=== PATIENT | female | born 1940 | race Caucasian/White ===

== ENCOUNTER 2016-06-06 13:45 | Outpatient (CLI) | payer MEDICARE, OTHER | END 2016-06-06 13:46 | disposition home or self-care (01) | DX: M06.09 Rheumatoid arthritis without rheumatoid factor, multiple sites (principal); M18.11 Unilateral primary osteoarthritis of first carpometacarpal joint, right hand ==

== ENCOUNTER 2016-06-06 13:45 | Outpatient (CLI) | payer MEDICARE, OTHER | END 2016-06-06 13:46 | disposition home or self-care (01) | DX: E83.52 Hypercalcemia (principal) ==

== ENCOUNTER 2016-08-31 08:24 | Outpatient (CLI) | payer MEDICARE, OTHER | END 2016-08-31 08:25 | disposition home or self-care (01) | DX: M06.09 Rheumatoid arthritis without rheumatoid factor, multiple sites (principal); M15.9 Polyosteoarthritis, unspecified ==

== ENCOUNTER 2016-10-12 14:08 | Outpatient (CLI) | payer MEDICARE, OTHER | END 2016-10-12 14:09 | disposition home or self-care (01) | DX: R92.8 Other abnormal and inconclusive findings on diagnostic imaging of breast (principal) ==

== ENCOUNTER 2016-10-13 12:31 | Outpatient (CLI) | payer MEDICARE, OTHER | END 2016-10-13 12:32 | disposition home or self-care (01) | DX: M79.601 Pain in right arm (principal) ==

== ENCOUNTER 2016-11-20 10:37 | Outpatient (CLI) | payer MEDICARE, OTHER ==
[2016-11-20 19:20] LABS: BASOPHILS % (AUTO) 0.7 %; EOSINOPHILS # (AUTO) 0.2 10^3/uL (0.0-0.7); EOSINOPHILS % (AUTO) 3.5 %; HCT - HEMATOCRIT 36.5 % (37.0-47.0); LYMPHOCYTES # (AUTO) 1.4 10^3/uL (1.5-3.5); MEAN CORPUSCULAR HEMOGLOBIN 31.4 pg (27.0-31.0); MEAN CORPUSCULAR HGB CONC 32.9 g/dL (32.0-36.0); MEAN CORPUSCULAR VOLUME 95.5 fL (81.0-99.0); MEAN PLATELET VOLUME 8.8 fL (7.9-10.8); MONOCYTES # (AUTO) 0.6 10^3/uL (0.0-1.0); MONOCYTES % (AUTO) 11.8 %; NEUTROPHILS # (AUTO) 2.6 10^3/uL (1.5-6.6); NUCLEATED RED BLOOD CELLS AUTO 0.1 /100WBC; RED BLOOD COUNT 3.82 10^6/uL (4.20-5.40); RED CELL DISTRIBUTION WIDTH 13.5 % (12.0-15.0); UNCORRECTED WHITE BLOOD COUNT 4.8 x10^3/uL; WHITE BLOOD COUNT 4.8 x10^3/uL (4.8-10.8)
[2016-11-20 19:29] LABS: ALBUMIN/GLOBULIN RATIO 1.3 (1.0-2.2); BILIRUBIN,TOTAL 0.4 mg/dL (0.2-1.0); CREATININE 0.8 mg/dL (0.4-1.0); POTASSIUM 4.3 mmol/L (3.5-5.0)
== END 2016-11-20 10:38 | disposition home or self-care (01) ==
LOC: LAB.WCP 10:37
PROVIDERS: ATTEND Internal Medicine Rheumatology
DX: M06.09 Rheumatoid arthritis without rheumatoid factor, multiple sites (principal)
CPT/HCPCS: 36415; 80053; 85025; 85651

== ENCOUNTER 2016-11-29 17:00 | Outpatient (CLI) | payer MEDICARE, OTHER | END 2016-11-29 17:01 | disposition home or self-care (01) | LOC: LAB.R 17:00 | PROVIDERS: ATTEND Physician Assistant Medical | DX: J34.89 Other specified disorders of nose and nasal sinuses (principal) | CPT/HCPCS: 87640 ==

== ENCOUNTER 2016-12-13 16:30 | Outpatient (CLI) | payer MEDICARE, OTHER | END 2016-12-13 16:31 | LOC: LAB.R 16:30 | PROVIDERS: ATTEND Physician Assistant Medical | DX: N39.41 Urge incontinence (principal) | CPT/HCPCS: 87086 ==

== ENCOUNTER 2017-01-28 09:28 | Outpatient (CLI) | payer MEDICARE, OTHER ==
[2017-01-28 13:45] LABS: BILIRUBIN,TOTAL 0.3 mg/dL (0.2-1.0); BUN - BLOOD UREA NITROGEN 28 mg/dL (6-20); CALCIUM 10.2 mg/dL (8.5-10.3); CARBON DIOXIDE - CO2 27 mmol/L (21-32); CHLORIDE 101 mmol/L (101-111); CHOL/HDL RATIO 3.3 (<4.4); CHOLESTEROL 177 mg/dL; GFR - MDRD 54 (>89); GLUCOSE 115 mg/dL (70-100); HDL CHOLESTEROL 53 mg/dL; POTASSIUM 3.7 mmol/L (3.5-5.0); SODIUM 138 mmol/L (135-145); TOTAL PROTEIN 7.3 g/dL (6.7-8.2); TRIGLYCERIDES 80 mg/dL; VLDL CHOLESTEROL 16 mg/dL
== END 2017-01-28 09:29 | disposition home or self-care (01) ==
LOC: LAB.WCP 09:28
PROVIDERS: ATTEND Physician Assistant Medical
DX: E78.5 Hyperlipidemia, unspecified (principal)
CPT/HCPCS: 36415; 80053; 80061

== ENCOUNTER 2017-04-01 10:49 | Outpatient (CLI) | payer MEDICARE, OTHER ==
[2017-04-01 19:00] LABS: BASOPHILS % (AUTO) 0.8 %; EOSINOPHILS # (AUTO) 0.2 10^3/uL (0.0-0.7); EOSINOPHILS % (AUTO) 4.1 %; HGB - HEMOGLOBIN 11.7 g/dL (12.0-16.0); LYMPHOCYTES # (AUTO) 1.5 10^3/uL (1.5-3.5); LYMPHOCYTES % (AUTO) 26.4 %; MEAN CORPUSCULAR HEMOGLOBIN 30.7 pg (27.0-31.0); MEAN CORPUSCULAR HGB CONC 33.3 g/dL (32.0-36.0); MEAN CORPUSCULAR VOLUME 92.2 fL (81.0-99.0); MEAN PLATELET VOLUME 8.8 fL (7.9-10.8); MONOCYTES # (AUTO) 0.5 10^3/uL (0.0-1.0); MONOCYTES % (AUTO) 8.6 %; NEUTROPHILS # (AUTO) 3.3 10^3/uL (1.5-6.6); NEUTROPHILS % (AUTO) 60.1 %; RED CELL DISTRIBUTION WIDTH 14.6 % (12.0-15.0); UNCORRECTED WHITE BLOOD COUNT 5.5 x10^3/uL; WHITE BLOOD COUNT 5.5 x10^3/uL (4.8-10.8)
[2017-04-01 19:20] LABS: ALBUMIN/GLOBULIN RATIO 1.1 (1.0-2.2); BILIRUBIN,TOTAL 0.4 mg/dL (0.2-1.0); POTASSIUM 3.9 mmol/L (3.5-5.0); TOTAL PROTEIN 7.3 g/dL (6.7-8.2)
== END 2017-04-01 10:50 | disposition home or self-care (01) ==
LOC: LAB.WCP 10:49
PROVIDERS: ATTEND Internal Medicine Rheumatology
DX: M06.09 Rheumatoid arthritis without rheumatoid factor, multiple sites (principal)
CPT/HCPCS: 36415; 80053; 85025; 85651

== ENCOUNTER 2017-04-30 10:59 | Outpatient (CLI) | payer MEDICARE, OTHER ==
--- NOTE | 2017-05-01 17:11 | Mammography Report ---
DIGITAL SCREENING MAMMOGRAM: 04/30/2017 CLINICAL INDICATION: A 76-year-old with history of benign biopsy for screening. COMPARISON: 04/2016, 03/2014, 03/2013, 03/2012, 03/2011, 09/2010, 03/2010. TECHNIQUE: Routine CC and MLO projections were obtained of the breasts. The breasts again demonstrate scattered fibroglandular densities bilaterally. Biopsy markers in the left breast are stable. Coarse and punctate, typically benign calcifications are present. No suspic ious masses, clustered microcalcifications, or regions of architectural distortion are identified. IMPRESSION: BENIGN FINDINGS. RECOMMENDATION: ROUTINE ANNUAL SCREENING UNLESS OTHERWISE CLINICALLY INDICATED. BIRADS CATEGORY: 2, BENIGN FINDINGS. STANDARD QUALIFYING STATEMENTS 1. This examination was reviewed with the aid of Computed-Aided Detection (CAD). 2. A negative or benign imaging report should not delay biopsy if clinically suspicious findings are present. Consider surgical consultation if warranted. More than 5% of cancers are not identified b y imaging. 3. Dense breasts may obscure an underlying neoplasm. JOB #: [id number] EXT JOB #:[id number]
== END 2017-04-30 11:00 | disposition home or self-care (01) ==
LOC: DI 10:59
PROVIDERS: ATTEND Physician Assistant Medical
DX: Z12.31 Encounter for screening mammogram for malignant neoplasm of breast (principal)
CPT/HCPCS: 77067

== ENCOUNTER 2017-06-20 08:00 | Outpatient (CLI) | payer MEDICARE, OTHER ==
[2017-06-20 12:46] LABS: CHOL/HDL RATIO 2.3 (<4.4); CHOLESTEROL 177 mg/dL; HDL CHOLESTEROL 76 mg/dL; LDL CHOLESTEROL,CALCULATED 85 mg/dL; LDL/HDL RATIO 1.1 (<4.4); VLDL CHOLESTEROL 16 mg/dL
[2017-06-20 12:58] LABS: BASOPHILS % (AUTO) 0.7 %; EOSINOPHILS # (AUTO) 0.2 10^3/uL (0.0-0.7); EOSINOPHILS % (AUTO) 3.6 %; HGB - HEMOGLOBIN 12.3 g/dL (12.0-16.0); LYMPHOCYTES # (AUTO) 1.8 10^3/uL (1.5-3.5); LYMPHOCYTES % (AUTO) 32.5 %; MEAN CORPUSCULAR HEMOGLOBIN 30.5 pg (27.0-31.0); MEAN CORPUSCULAR HGB CONC 33.4 g/dL (32.0-36.0); MEAN CORPUSCULAR VOLUME 91.3 fL (81.0-99.0); MEAN PLATELET VOLUME 8.4 fL (7.9-10.8); MONOCYTES # (AUTO) 0.5 10^3/uL (0.0-1.0); MONOCYTES % (AUTO) 9.2 %; PLT - PLATELET COUNT 227 10^3/uL (130-450); RED BLOOD COUNT 4.02 10^6/uL (4.20-5.40); RED CELL DISTRIBUTION WIDTH 13.9 % (12.0-15.0); WHITE BLOOD COUNT 5.5 x10^3/uL (4.8-10.8)
[2017-06-20 13:02] LABS: ALBUMIN/GLOBULIN RATIO 1.2 (1.0-2.2); ALKALINE PHOSPHATASE 55 IU/L (42-121); ALT ALANINE AMINOTRANSFERASE 11 IU/L (10-60); AST ASPARTATE AMINOTRANSFERASE 20 IU/L (10-42); BILIRUBIN,TOTAL 0.2 mg/dL (0.2-1.0); BUN - BLOOD UREA NITROGEN 33 mg/dL (6-20); CALCIUM 10.5 mg/dL (8.5-10.3); CARBON DIOXIDE - CO2 27 mmol/L (21-32); CHLORIDE 105 mmol/L (101-111); CREATININE 0.9 mg/dL (0.4-1.0); GFR - MDRD 61 (>89); GLUCOSE 117 mg/dL (70-100); SODIUM 137 mmol/L (135-145); TOTAL PROTEIN 7.4 g/dL (6.7-8.2)
[2017-06-20 13:05] LABS: CRP - C-REACTIVE PROTEIN < 1.0 mg/dL (0-1.0)
== END 2017-06-20 08:01 ==
LOC: LAB.WCP 08:00
PROVIDERS: ATTEND Internal Medicine Rheumatology
DX: M06.09 Rheumatoid arthritis without rheumatoid factor, multiple sites (principal); M15.9 Polyosteoarthritis, unspecified; E78.5 Hyperlipidemia, unspecified
CPT/HCPCS: 36415; 80053; 80061; 85025; 85651; 86140

== ENCOUNTER 2017-09-16 08:37 | Outpatient (CLI) | payer MEDICARE, OTHER ==
[2017-09-16 12:46] LABS: BASOPHILS % (AUTO) 0.9 %; EOSINOPHILS # (AUTO) 0.2 10^3/uL (0.0-0.7); EOSINOPHILS % (AUTO) 4.5 %; HGB - HEMOGLOBIN 12.4 g/dL (12.0-16.0); LYMPHOCYTES # (AUTO) 1.5 10^3/uL (1.5-3.5); LYMPHOCYTES % (AUTO) 28.2 %; MEAN CORPUSCULAR HEMOGLOBIN 30.9 pg (27.0-31.0); MEAN CORPUSCULAR VOLUME 90.7 fL (81.0-99.0); MEAN PLATELET VOLUME 8.4 fL (7.9-10.8); MONOCYTES # (AUTO) 0.5 10^3/uL (0.0-1.0); MONOCYTES % (AUTO) 9.7 %; NEUTROPHILS % (AUTO) 56.7 %; PLT - PLATELET COUNT 230 10^3/uL (130-450); RED BLOOD COUNT 4.02 10^6/uL (4.20-5.40); RED CELL DISTRIBUTION WIDTH 13.8 % (12.0-15.0); WHITE BLOOD COUNT 5.3 x10^3/uL (4.8-10.8)
[2017-09-16 13:11] LABS: ALBUMIN 3.9 g/dL (3.2-5.5); ALBUMIN/GLOBULIN RATIO 1.1 (1.0-2.2); ALKALINE PHOSPHATASE 65 IU/L (42-121); ALT ALANINE AMINOTRANSFERASE 10 IU/L (10-60); AST ASPARTATE AMINOTRANSFERASE 21 IU/L (10-42); BILIRUBIN,TOTAL 0.5 mg/dL (0.2-1.0); BUN - BLOOD UREA NITROGEN 33 mg/dL (6-20); CALCIUM 10.2 mg/dL (8.5-10.3); CARBON DIOXIDE - CO2 26 mmol/L (21-32); CHLORIDE 105 mmol/L (101-111); CREATININE 0.8 mg/dL (0.4-1.0); CRP - C-REACTIVE PROTEIN < 1.0 mg/dL (0-1.0); GFR - MDRD 70 (>89); GLUCOSE 112 mg/dL (70-100); SODIUM 137 mmol/L (135-145); TOTAL PROTEIN 7.4 g/dL (6.7-8.2)
== END 2017-09-16 08:38 | disposition home or self-care (01) ==
LOC: LAB.WCP 08:37
PROVIDERS: ATTEND Internal Medicine Rheumatology
DX: M79.1 Myalgia (principal); M06.00 Rheumatoid arthritis without rheumatoid factor, unspecified site
CPT/HCPCS: 36415; 80053; 85025; 85651; 86140

== ENCOUNTER 2017-10-23 08:00 | Outpatient (CLI) | payer MEDICARE, OTHER ==
[2017-10-25 22:18] LABS: ALBUMIN 3.9 g/dL (3.8-4.8); ALPHA 1 GLOBULIN 0.3 g/dL (0.2-0.3); ALPHA 2 GLOBULIN 0.9 g/dL (0.5-0.9); BETA 1 GLOBULIN 0.5 g/dL (0.4-0.6); BETA 2 GLOBULIN 0.5 g/dL (0.2-0.5)
== END 2017-10-23 08:01 ==
LOC: LAB.WCP 08:00
PROVIDERS: ATTEND Internal Medicine Rheumatology
DX: M25.50 Pain in unspecified joint (principal)
CPT/HCPCS: 36415; 84155; 84165; 85651; 86140

== ENCOUNTER 2018-01-06 08:00 | Outpatient (CLI) | payer MEDICARE, OTHER ==
[2018-01-06 14:02] LABS: CHOL/HDL RATIO 2.6 (<4.4); CHOLESTEROL 190 mg/dL; HDL CHOLESTEROL 72 mg/dL; LDL CHOLESTEROL,CALCULATED 108 mg/dL; LDL/HDL RATIO 1.5 (<4.4); VLDL CHOLESTEROL 10 mg/dL
[2018-01-06 16:14] LABS: BASOPHILS # (AUTO) 0.1 10^3/uL (0.0-0.1); BASOPHILS % (AUTO) 1.4 %; EOSINOPHILS # (AUTO) 0.2 10^3/uL (0.0-0.7); HGB - HEMOGLOBIN 12.6 g/dL (12.0-16.0); LYMPHOCYTES # (AUTO) 1.5 10^3/uL (1.5-3.5); LYMPHOCYTES % (AUTO) 28.7 %; MEAN CORPUSCULAR HEMOGLOBIN 30.6 pg (27.0-31.0); MEAN CORPUSCULAR HGB CONC 33.6 g/dL (32.0-36.0); MEAN CORPUSCULAR VOLUME 91.2 fL (81.0-99.0); MEAN PLATELET VOLUME 8.7 fL (7.9-10.8); MONOCYTES # (AUTO) 0.5 10^3/uL (0.0-1.0); MONOCYTES % (AUTO) 9.2 %; NEUTROPHILS # (AUTO) 3.1 10^3/uL (1.5-6.6); NEUTROPHILS % (AUTO) 57.7 %; PLT - PLATELET COUNT 239 10^3/uL (130-450); RED CELL DISTRIBUTION WIDTH 14.1 % (12.0-15.0); WHITE BLOOD COUNT 5.3 x10^3/uL (4.8-10.8)
[2018-01-06 16:23] LABS: ALBUMIN 3.7 g/dL (3.2-5.5); BILIRUBIN,TOTAL 0.4 mg/dL (0.2-1.0); CALCIUM 9.9 mg/dL (8.5-10.3); CREATININE 0.8 mg/dL (0.4-1.0); TOTAL PROTEIN 7.3 g/dL (6.7-8.2)
== END 2018-01-06 08:01 | disposition home or self-care (01) ==
LOC: LAB.WCP 08:00
PROVIDERS: ATTEND Physician Assistant Medical
DX: E78.5 Hyperlipidemia, unspecified (principal); M06.00 Rheumatoid arthritis without rheumatoid factor, unspecified site
CPT/HCPCS: 36415; 80053; 80061; 83721; 85025; 85651

== ENCOUNTER 2018-04-17 08:00 | Outpatient (CLI) | payer MEDICARE, OTHER ==
[2018-04-17 14:05] LABS: ALBUMIN 4.1 g/dL (3.2-5.5); ALBUMIN/GLOBULIN RATIO 1.3 (1.0-2.2); BILIRUBIN,TOTAL 0.7 mg/dL (0.2-1.0); CALCIUM 9.9 mg/dL (8.5-10.3); CREATININE 0.8 mg/dL (0.4-1.0); TOTAL PROTEIN 7.3 g/dL (6.7-8.2)
== END 2018-04-17 08:01 ==
LOC: LAB.WCP 08:00
PROVIDERS: ATTEND Internal Medicine Rheumatology
DX: M25.50 Pain in unspecified joint (principal)
CPT/HCPCS: 36415; 80053; 85651; 86140

== ENCOUNTER 2018-06-02 09:38 | Outpatient (CLI) | payer MEDICARE, OTHER ==
--- NOTE | 2018-06-04 09:08 | Mammography Report ---
Reason: SCREENING MAMMO Procedure Date: 06/02/2018 Accession Number: [id number] / [id number] Procedure: JESSICA - Screening Mammo w/Khurram CPT Code: FULL RESULT: EXAM: Screening Mammo w/Khurram DATE: 06/02/2018 10:32 AM CLINICAL HISTORY: Screening encounter. History of benign left breast biopsy. No reported risk factors. TECHNIQUE: Bilateral CC, laterally exaggerated CC, MLO views were obtained. COMPARISON: 04/30/2017 through 03/17/2013. FINDINGS: The breasts demonstrate scattered fibroglandular densities bilaterally. Two biopsy markers are seen in the left breast. Typically benign coarse calcifications are noted. No suspicious masses, clustered microcalcifications, or regions of architectural distortion are identified. IMPRESSION: Benign findings RECOMMENDATION: Routine annual screening unless otherwise clinically indicated. BIRADS CATEGORY 2: Benign findings STANDARD QUALIFYING STATEMENTS: 1. This examination was not reviewed with the aid of Computer-Aided Detection (CAD). 2. A negative or benign imaging report should not preclude biopsy if clinically suspicious findings are present. 3. Dense breasts may obscure an underlying neoplasm. 4. This examination was reviewed with the aid of 3D breast imaging (tomosynthesis).
== END 2018-06-02 09:39 | disposition home or self-care (01) ==
LOC: DI 09:38
DX: Z12.31 Encounter for screening mammogram for malignant neoplasm of breast (principal)
CPT/HCPCS: 77063; 77067

== ENCOUNTER 2018-12-23 19:21 | Emergency (ER) | payer MEDICARE, OTHER ==
[2018-12-23] MEDS ORDERED: SODIUM CHLORIDE 0.9% 1,000 ML IV ONE (19:43)
--- NOTE | 2018-12-23 19:45 | ED Physician Documentation ---
History of Present Illness - Stated complaint Stated Complaint: FEVER/CONFUSION - Chief complaint Chief Complaint: Neuro - History obtained from History obtained from: Patient, Family - History of Present Illness Timing: Today (She is been achy for a few days with myalgias and a mild cough. She has a low appetite, denies specific urinary complaints. Today she had a fever of 101.4 and was mildly confused. Thinking it was 6 AM instead of 6 PM just prior to arrival.At most she has a mild headache. No neck stiffness. No sick contacts or recent travel although she is planning to go [facility] [place] [facility] Review of Systems Constitutional: reports: Fever, Chills Ears: denies: Drainage/discharge Nose: denies: Rhinorrhea / runny nose, Congestion Throat: denies: Sore throat Respiratory: reports: Cough. denies: Dyspnea GI: reports: Diarrhea (2 small yesterday, not today). 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 - Present Medications Home Medications: Ambulatory Orders Medication Instructions Recorded Confirmed Aspirin [Aspirin EC] 81 mg PO DAILY 11/16/12 12/23/18 Cholecalciferol (Vitamin D3) 2,000 unit PO DAILY 11/16/12 12/23/18 [Vitamin D] Cyclosporine [Restasis] 1 each EACHEYE DAILY 11/16/12 12/23/18 Magnesium Citrate [Citrate of 300 ml PO DAILY 11/16/12 12/23/18 Magnesia] Metoprolol Succinate [Toprol Xl] 25 mg PO BID 11/16/12 12/23/18 Multivitamin [Multivitamins] 1 each PO DAILY 11/16/12 12/23/18 Omeprazole [PriLOSEC] 20 mg PO DAILY 07/18/15 12/23/18 Ciprofloxacin HCl [Cipro] 500 mg PO BID #14 tablet 12/23/18 Diltiazem HCl [Diltiazem 24Hr ER] 120 mg PO DAILY 12/23/18 12/23/18 Losartan [Cozaar] 25 mg PO DAILY 12/23/18 12/23/18 Mirabegron [Myrbetriq] 50 mg PO DAILY 12/23/18 12/23/18 - Allergies Allergies/Adverse Reactions: Allergies Allergy/AdvReac Type Severity Reaction Status Date / Time Iodinated Contrast- Oral and AdvReac Intermediate Rash Verified 12/23/18 19:29 IV Dye [Iodinated Contrast Media - IV Dye] - Social History Does the pt smoke?: No Smoking Status: Never smoker Does the pt drink ETOH?: No Does the pt have substance abuse?: No - Immunizations Immunizations are current?: Yes PD ED PE NORMAL - Vitals Vital signs reviewed: Yes - General General: Alert and oriented X 3, No acute distress - HEENT HEENT: PERRL, EOMI - Neck Neck: Supple, no meningeal sign, No bony TTP - Cardiac Cardiac: RRR, No murmur - Respiratory Respiratory: No respiratory distress, Clear bilaterally - Abdomen Abdomen: Soft, Non tender - Back Back: No CVA TTP, No spinal TTP - Derm Derm: Normal color, Warm and dry, Other (modest macular rash on the trunk, no petechiae/purpura) - Extremities Extremities: No edema, No calf tenderness / cord - Neuro Neuro: Alert and oriented X 3 (But slightly poor short-term memory, although technically alert and oriented.), Normal speech Results - Vitals Vitals: Vital Signs - 24 hr 12/23/18 12/23/18 12/23/18 19:26 19:29 21:29 Temperature 37.1 C 37.1 C 37.1 C Heart Rate 100 100 85 Respiratory 16 16 14 Rate Blood Pressure 98/56 L 98/56 L 120/58 L O2 Saturation 96 96 98 Oxygen O2 Source Room air - Labs Labs: Laboratory Tests 12/23/18 12/23/18 12/23/18 19:56 19:56 20:02 WBC 5.2 RBC 3.65 L Hgb 10.9 L Hct 33.0 L MCV 90.4 MCH 29.9 MCHC 33.0 RDW 14.4 Plt Count 138 MPV 11.0 H Neut # (Auto) 4.3 Lymph # (Auto) 0.4 L [place] # (Auto) 0.2 Eos # (Auto) 0.2 Baso # (Auto) 0.0 Absolute Nucleated RBC 0.00 Nucleated RBC % 0.0 Sodium 133 L Potassium 3.3 L Chloride 96 L Carbon Dioxide 23 Anion Gap 14.0 H BUN 35 H Creatinine 1.4 H Estimated GFR (MDRD) 36 L Glucose 112 H Lactic Acid 1.0 Calcium 10.4 H Total Bilirubin 1.3 H AST 124 H ALT 90 H Alkaline Phosphatase 161 H Total Protein 7.0 Albumin 3.2 Globulin 3.8 Albumin/Globulin Ratio 0.8 L Lipase 56 H Urine Color Urine Clarity Urine pH Ur Specific [place] Urine Protein Urine Glucose (UA) Urine Ketones Urine Occult Blood Urine Nitrite Urine Bilirubin Urine Urobilinogen Ur Leukocyte Esterase Urine RBC Urine WBC Ur Squamous Epith Cells Urine Bacteria Ur Microscopic Review Urine Culture Comments Influenza A (Rapid) Influenza B (Rapid) 12/23/18 12/23/18 20:03 21:26 WBC RBC Hgb Hct MCV MCH MCHC RDW Plt Count MPV Neut # (Auto) Lymph # (Auto) [place] # (Auto) Eos # (Auto) Baso # (Auto) Absolute Nucleated RBC Nucleated RBC % Sodium Potassium Chloride Carbon Dioxide Anion Gap BUN Creatinine Estimated GFR (MDRD) Glucose Lactic Acid Calcium Total Bilirubin AST ALT Alkaline Phosphatase Total Protein Albumin Globulin Albumin/Globulin Ratio Lipase Urine Color YELLOW Urine Clarity CLEAR Urine pH 6.0 Ur Specific [place] 1.010 Urine Protein NEGATIVE Urine Glucose (UA) NEGATIVE Urine Ketones NEGATIVE Urine Occult Blood TRACE-INTA Urine Nitrite NEGATIVE Urine Bilirubin NEGATIVE Urine Urobilinogen 0.2 (NORMAL) Ur Leukocyte Esterase TRACE H Urine RBC 0-5 Urine WBC 0-3 Ur Squamous Epith Cells FEW Squamous Urine Bacteria None Seen Ur Microscopic Review INDICATED Urine Culture Comments INDICATED Influenza A (Rapid) Negative Influenza B (Rapid) Negative - Rads (name of study) RUQ sono Radiology: EMP read contemporaneously (neg) CXR Radiology: EMP read contemporaneously (neg) PD MEDICAL DECISION MAKING - ED course ED course: 78-year-old woman presents with fever at home with very mild confusion which is seemingly resolved here. She is a modest macular rash on the trunk. No other obvious physical findings. Urine is soft positive with trace leukocyte esterase but no other findings. Blood work notable for normal white count and lactate and modestly elevated liver enzymes which are new. Further history from the family, she started leflunomide for rheumatoid arthritis about a month ago which may be contributing to the liver issues. Her right upper quadrant ultrasound was negative and she was encouraged to stop the leflunomide pending follow-up with her lab rep. I recommended admission for further evaluation and treatment. The family is medically savvy and would like to observe her at home and return if worse pending blood and urine cultures. Departure - Departure Disposition: Home, Self Care Clinical Impression: Confusion, Elevated liver enzymes Fever Qualifiers: Fever type: unspecified Qualified Code(s): R50.9 - Fever, unspecified Urinary tract infection Qualifiers: Urinary tract infection type: site unspecified Hematuria presence: without hematuria Qualified Code(s): N39.0 - Urinary tract infection, site not specified Condition: Good Record reviewed to determine appropriate education?: Yes Instructions: ED Fever Unconf Cause Prescriptions: Ciprofloxacin HCl [Cipro] 500 mg PO BID #14 tablet Comments: We are culturing blood in urine. If the blood cultures become positive we will call you and she will need to return immediately for admission. If the urine culture is positive and a resistant organism was found we will call you, that usually takes about 48 hours. Return immediately if worse, also stop the leflunomide given the elevated liver enzymes pending follow-up with your lab rep.
[2018-12-23 20:11] LABS: BASOPHILS % (AUTO) 0.4 %; EOSINOPHILS # (AUTO) 0.2 10^3/uL (0.0-0.7); EOSINOPHILS % (AUTO) 4.2 %; HGB - HEMOGLOBIN 10.9 g/dL (12.0-16.0); LYMPHOCYTES # (AUTO) 0.4 10^3/uL (1.5-3.5); LYMPHOCYTES % (AUTO) 7.9 %; MEAN CORPUSCULAR HEMOGLOBIN 29.9 pg (27.0-31.0); MEAN CORPUSCULAR VOLUME 90.4 fL (81.0-99.0); MONOCYTES # (AUTO) 0.2 10^3/uL (0.0-1.0); MONOCYTES % (AUTO) 3.7 %; NEUTROPHILS # (AUTO) 4.3 10^3/uL (1.5-6.6); NEUTROPHILS % (AUTO) 83.6 %; PLT - PLATELET COUNT 138 10^3/uL (130-450); RED BLOOD COUNT 3.65 10^6/uL (4.20-5.40); RED CELL DISTRIBUTION WIDTH 14.4 % (12.0-15.0); WHITE BLOOD COUNT 5.2 x10^3/uL (4.8-10.8)
[2018-12-23 20:29] LABS: CREATININE 1.4 mg/dL (0.4-1.0)
[2018-12-23 20:30] LABS: ALBUMIN 3.2 g/dL (3.2-5.5); ALBUMIN/GLOBULIN RATIO 0.8 (1.0-2.2); BILIRUBIN,TOTAL 1.3 mg/dL (0.2-1.0); CALCIUM 10.4 mg/dL (8.5-10.3)
--- NOTE | 2018-12-23 20:56 | XRAY Report ---
Reason: fever Procedure Date: 12/23/2018 Accession Number: [id number] / [id number] Procedure: XR - Chest 2 View X-Ray CPT Code: 11540 FULL RESULT: EXAM: CHEST RADIOGRAPHY EXAM DATE: 12/23/2018 08:23 PM. CLINICAL HISTORY: Fever. COMPARISON: 08/04/2014 9:14 AM. TECHNIQUE: 2 views. FINDINGS: Lungs/Pleura: No evidence of acute infiltrate. Mildly increased opacity within the left lung base on frontal view is stable. This is probably prominent epicardiac fat. Mediastinum: Heart and mediastinal contours are unremarkable. Other: None. IMPRESSION: No acute intrathoracic plain film abnormality. RADIA
[2018-12-23 21:35] LABS: BILIRUBIN,URINE NEGATIVE (NEGATIVE); GLUCOSE, URINE (UA) NEGATIVE (NEGATIVE); KETONES,URINE (UA) NEGATIVE (NEGATIVE); LEUKOCYTE ESTERASE, URINE TRACE (NEGATIVE); NITRITE,URINE NEGATIVE (NEGATIVE); OCCULT BLOOD,URINE TRACE-INTA (NEGATIVE); PROTEIN,URINE NEGATIVE (NEGATIVE); UROBILINOGEN,URINE 0.2 (NORMAL) E.U./dL (NORMAL)
[2018-12-23 21:36] LABS: CLARITY,URINE CLEAR (CLEAR)
--- NOTE | 2018-12-23 21:42 | Ultrasound Report ---
Reason: fever, elev liver enz Procedure Date: 12/23/2018 Accession Number: [id number] / [id number] Procedure: US - Abdomen Limited CPT Code: FULL RESULT: EXAM: ABDOMEN ULTRASOUND LIMITED, RUQ EXAM DATE: 12/23/2018 09:06 PM. CLINICAL HISTORY: Fever. COMPARISON: None. TECHNIQUE: Real-time scanning was performed with static images obtained. FINDINGS: Liver: Submitted images of liver demonstrate no focal lesions. Main portal vein flow: Hepatopetal. Gallbladder: No stones, wall thickening, or sonographic Wyatt's sign. Biliary System: CBD measures 4 mm. No intrahepatic or extrahepatic ductal dilatation. Other: The visualized pancreas and right kidney are unremarkable. IMPRESSION: Negative right upper quadrant ultrasound. RADIA
[2018-12-23 21:49] LABS: BACTERIA,URINE None Seen /HPF (None Seen); RBC,URINE 0-5 /HPF (0-5); SQUAMOUS EPITHELIAL CELL,UR FEW Squamous (<= Few)
[2018-12-23 21:55] VITALS: BP 120/58
[2018-12-23] MEDS ORDERED: cefTRIAXone 1 GM VIAL IVP STA (22:04)
== END 2018-12-23 22:18 | disposition home or self-care (01) ==
LOC: ED 19:21
DX: R42 Dizziness and giddiness (principal); R74.8 Abnormal levels of other serum enzymes; R50.9 Fever, unspecified; N39.0 Urinary tract infection, site not specified; I10 Essential (primary) hypertension
CPT/HCPCS: 36415; 71046; 76705; 80053; 81001; 81003; 83605; 83690; 85025; 87040; 87086; 87275; 87276; 96361; 96374; 99284

== ENCOUNTER 2019-01-09 08:00 | Outpatient (CLI) | payer MEDICARE, OTHER ==
[2019-01-09 18:53] LABS: BASOPHILS # (AUTO) 0.1 10^3/uL (0.0-0.1); BASOPHILS % (AUTO) 1.9 %; EOSINOPHILS # (AUTO) 0.2 10^3/uL (0.0-0.7); EOSINOPHILS % (AUTO) 3.4 %; HGB - HEMOGLOBIN 10.3 g/dL (12.0-16.0); LYMPHOCYTES # (AUTO) 1.2 10^3/uL (1.5-3.5); LYMPHOCYTES % (AUTO) 22.6 %; MEAN CORPUSCULAR HEMOGLOBIN 29.9 pg (27.0-31.0); MEAN CORPUSCULAR VOLUME 99.4 fL (81.0-99.0); MEAN PLATELET VOLUME 10.8 fL (7.9-10.8); MONOCYTES # (AUTO) 0.6 10^3/uL (0.0-1.0); MONOCYTES % (AUTO) 11.6 %; NEUTROPHILS # (AUTO) 3.2 10^3/uL (1.5-6.6); NEUTROPHILS % (AUTO) 60.1 %; PLT - PLATELET COUNT 359 10^3/uL (130-450); RED BLOOD COUNT 3.45 10^6/uL (4.20-5.40); RED CELL DISTRIBUTION WIDTH 15.6 % (12.0-15.0); WHITE BLOOD COUNT 5.4 x10^3/uL (4.8-10.8)
[2019-01-09 19:08] LABS: ALBUMIN 3.3 g/dL (3.2-5.5); ALBUMIN/GLOBULIN RATIO 0.9 (1.0-2.2); BILIRUBIN,TOTAL 0.4 mg/dL (0.2-1.0); CALCIUM 10.1 mg/dL (8.5-10.3); CREATININE 0.8 mg/dL (0.4-1.0); TOTAL PROTEIN 6.9 g/dL (6.7-8.2)
== END 2019-01-09 08:01 | disposition home or self-care (01) ==
LOC: LAB.WCP 08:00
PROVIDERS: ATTEND Physician Assistant Medical
DX: I10 Essential (primary) hypertension (principal)
CPT/HCPCS: 36415; 80053; 85025

== ENCOUNTER 2019-01-09 16:26 | Outpatient (CLI) | payer MEDICARE, OTHER ==
--- NOTE | 2019-01-10 05:20 | XRAY Report ---
Reason: LEFT SHOULDER PAIN Procedure Date: 01/09/2019 Accession Number: [id number] / [id number] Procedure: WCP - Shoulder 3 View LT CPT Code: FULL RESULT: EXAM: LEFT SHOULDER RADIOGRAPHY EXAM DATE: 01/09/2019 10:40 AM. CLINICAL HISTORY: LEFT SHOULDER PAIN. COMPARISON: None. TECHNIQUE: 3 views. FINDINGS: Bones: Osteopenia. No acute fracture seen. Joints: No dislocation. Mild degenerative changes in the acromioclavicular joint. Glenohumeral joint is relatively well preserved for age. Soft tissues: Grossly unremarkable. IMPRESSION: 1. Osteopenia. No acute fracture or dislocation seen. 2. Mild degenerative changes in the acromioclavicular joint. RADIA
== END 2019-01-09 23:59 | disposition home or self-care (01) ==
LOC: DI.WCP 16:26
PROVIDERS: ATTEND Physician Assistant Medical
DX: M19.012 Primary osteoarthritis, left shoulder (principal); M85.812 Other specified disorders of bone density and structure, left shoulder

== ENCOUNTER 2019-02-04 09:00 | Outpatient (CLI) | payer MEDICARE, OTHER ==
[2019-02-04 18:53] LABS: BASOPHILS # (AUTO) 0.1 10^3/uL (0.0-0.1); BASOPHILS % (AUTO) 1.1 %; EOSINOPHILS # (AUTO) 0.2 10^3/uL (0.0-0.7); EOSINOPHILS % (AUTO) 3.9 %; HGB - HEMOGLOBIN 11.2 g/dL (12.0-16.0); LYMPHOCYTES # (AUTO) 1.2 10^3/uL (1.5-3.5); LYMPHOCYTES % (AUTO) 22.9 %; MEAN CORPUSCULAR HEMOGLOBIN 29.4 pg (27.0-31.0); MEAN CORPUSCULAR HGB CONC 30.3 g/dL (32.0-36.0); MEAN CORPUSCULAR VOLUME 97.1 fL (81.0-99.0); MEAN PLATELET VOLUME 10.7 fL (7.9-10.8); MONOCYTES # (AUTO) 0.6 10^3/uL (0.0-1.0); MONOCYTES % (AUTO) 10.2 %; NEUTROPHILS # (AUTO) 3.3 10^3/uL (1.5-6.6); NEUTROPHILS % (AUTO) 61.7 %; PLT - PLATELET COUNT 256 10^3/uL (130-450); RED BLOOD COUNT 3.81 10^6/uL (4.20-5.40); RED CELL DISTRIBUTION WIDTH 15.1 % (12.0-15.0); WHITE BLOOD COUNT 5.4 x10^3/uL (4.8-10.8)
[2019-02-04 19:20] LABS: % IRON SATURATION 25 % (20-50); IRON 97 ug/dL (28-170); TOTAL IRON BINDING CAPACITY 381 ug/dL (250-450); TRANSFERRIN 272 mg/dL (192-382)
[2019-02-04 19:32] LABS: FERRITIN 24.5 ng/mL (11.0-306.8)
[2019-02-04 19:35] LABS: FOLATE 8.17 ng/mL (5.90 - >24.8)
== END 2019-02-04 23:59 | disposition home or self-care (01) ==
LOC: LAB.WCP 09:00
PROVIDERS: ATTEND Physician Assistant Medical
DX: D64.9 Anemia, unspecified (principal)
CPT/HCPCS: 36415; 82607; 82728; 82746; 83540; 84466; 85025

== ENCOUNTER 2019-02-20 09:55 | Outpatient (CLI) | payer MEDICARE, OTHER ==
--- NOTE | 2019-02-20 14:12 | DEXA Report ---
Reason: POSTMENOPAUSAL STATUS Procedure Date: 02/20/2019 Accession Number: [id number] / [id number] Procedure: DEX - Dexa Spine and/or Hip CPT Code: FULL RESULT: EXAM: Dexa Spine and/or Hip DATE: 02/20/2019 11:46 AM CLINICAL HISTORY: POSTMENOPAUSAL STATUS. History of osteopenia TECHNIQUE: Dual energy x-ray absorptiometry (DXA) was performed on a SiTime System. Regions measured are the AP Spine, femoral neck, and if needed forearm. COMPARISON: 08/02/2015 In accordance with the International Society for Clinical Densitometry (ISCD) guidelines, data from previous exams may be reanalyzed using current recommendations and techniques. This is done to allow a more accurate basis for comparison with the current study. FINDINGS: The data for the lumbar spine is as follows: BMD (g/cm/cm) T-SCORE Z-SCORE REGION L1 0.877 -2.1 -0.2 L2 1.008 -1.6 0.3 L3 1.115 -0.7 1.2 L4 1.228 0.2 2.2 TOTAL 1.060 -1.0 0.9 NOTE: All evaluable vertebrae are used for classification The data for the hip is as follows: BMD (g/cm/cm) T-SCORE Z-SCORE REGION Neck 0.861 -1.3 0.8 TOTAL 0.765 -1.9 0.0 NOTE: The femoral neck or total proximal femur, whichever is lowest, is used for classification. IMPRESSION: THE WHO CLASSIFICATION BASED ON THE INTERNATIONAL REFERENCE STANDARD IS OSTEOPENIA REFERENCE TOTAL LEFT HIP. THE FRACTURE RISK IS INCREASED. RECOMMENDATION: Patients with diagnosis of osteoporosis or osteopenia should have regular bone mineral density assessment. For those eligible for Medicare, routine testing is allowed once every 2 years. Testing frequency can be increased for patients who have rapidly progressing disease or for those who are receiving medical therapy to restore bone mass. COMMENT: World Health Organization (WHO) definitions for osteoporosis and osteopenia: NORMAL BMD: T-score at -1.0 or higher, fracture risk is low OSTEOPENIA BMD: T-score between -1.0 and -2.5, fracture risk is increased. OSTEOPOROSIS BMD: T-score at -2.5 or lower, fracture risk is high. National Osteoporosis Foundation recommends: 1. Obtain adequate dietary calcium (at least 1200 mg per day) and vitamin D (400-800 international units per day). 2. Participate, as appropriate, in regular weightbearing and muscle-strengthening exercise. 3. Avoid tobacco use and reduce alcohol and caffeine intake. 4. For more detailed information see the website at www.NOF.org.
== END 2019-02-20 09:56 | disposition home or self-care (01) ==
LOC: DI 09:55
PROVIDERS: ATTEND Physician Assistant Medical
DX: M85.89 Other specified disorders of bone density and structure, multiple sites (principal)
CPT/HCPCS: 77080

== ENCOUNTER → 2019-03-10 | Outpatient (CLI) | payer MEDICARE, OTHER ==
--- NOTE | 2019-03-10 15:27 | XRAY Report ---
Reason: CHRONIC CONSTIPATION Procedure Date: 03/10/2019 Accession Number: [id number] / [id number] Procedure: WCP - Abdomen 2 View X-Ray CPT Code: 35044 FULL RESULT: EXAM: ABDOMEN RADIOGRAPHY EXAM DATE: 03/10/2019 12:24 PM. CLINICAL HISTORY: Chronic constipation. COMPARISON: PELVIC W/TRANSVAGINAL 12/17/2015 12:48 PM. TECHNIQUE: 2 views. FINDINGS: Lung Bases: Unremarkable. Bowel Gas Pattern: Within normal limits. No dilated loops or abnormal fluid levels. Free Air: None. Other: Calcification in the left pelvis is seen, likely related to degenerated fibroids. Moderate degenerative changes are seen in the spine. IMPRESSION: No acute findings. Normal stool volume. RADIA
== END ==
LOC: DI.WCP 08:00 → EDSTATUS 12:31
PROVIDERS: ATTEND Physician Assistant
DX: K59.04 Chronic idiopathic constipation (principal); K92.89 Other specified diseases of the digestive system
CPT/HCPCS: 74019

== ENCOUNTER 2019-04-29 08:00 | Outpatient (CLI) | payer MEDICARE, OTHER ==
[2019-04-29 13:06] LABS: BASOPHILS # (AUTO) 0.1 10^3/uL (0.0-0.1); BASOPHILS % (AUTO) 1.1 %; EOSINOPHILS # (AUTO) 0.2 10^3/uL (0.0-0.7); EOSINOPHILS % (AUTO) 3.8 %; HGB - HEMOGLOBIN 11.3 g/dL (12.0-16.0); LYMPHOCYTES # (AUTO) 1.6 10^3/uL (1.5-3.5); LYMPHOCYTES % (AUTO) 33.1 %; MEAN CORPUSCULAR HEMOGLOBIN 28.6 pg (27.0-31.0); MEAN CORPUSCULAR VOLUME 92.2 fL (81.0-99.0); MEAN PLATELET VOLUME 10.2 fL (7.9-10.8); MONOCYTES # (AUTO) 0.5 10^3/uL (0.0-1.0); MONOCYTES % (AUTO) 10.5 %; NEUTROPHILS # (AUTO) 2.4 10^3/uL (1.5-6.6); NEUTROPHILS % (AUTO) 51.3 %; PLT - PLATELET COUNT 284 10^3/uL (130-450); RED BLOOD COUNT 3.95 10^6/uL (4.20-5.40); RED CELL DISTRIBUTION WIDTH 14.6 % (12.0-15.0); WHITE BLOOD COUNT 4.7 x10^3/uL (4.8-10.8)
[2019-04-29 14:03] LABS: ALBUMIN 3.9 g/dL (3.2-5.5); ALBUMIN/GLOBULIN RATIO 1.1 (1.0-2.2); BILIRUBIN,TOTAL 0.6 mg/dL (0.2-1.0); CALCIUM 10.4 mg/dL (8.5-10.3); CREATININE 0.8 mg/dL (0.4-1.0); TOTAL PROTEIN 7.4 g/dL (6.7-8.2)
== END 2019-04-29 23:59 | disposition home or self-care (01) ==
LOC: LAB.WCP 08:00
PROVIDERS: ATTEND Physician Assistant Medical
DX: D64.9 Anemia, unspecified (principal); R94.5 Abnormal results of liver function studies
CPT/HCPCS: 36415; 80053; 82607; 85025

== ENCOUNTER 2019-06-12 14:52 | Outpatient (CLI) | payer MEDICARE, OTHER ==
--- NOTE | 2019-06-15 14:27 | Mammography Report ---
Reason: ROUTINE SCREENING Procedure Date: 06/12/2019 Accession Number: [id number] / [id number] Procedure: JESSICA - Screening Mammo Dig Bilat CPT Code: Final Report FULL RESULT: EXAM: Screening Mammo Dig Bilat DATE: 06/12/2019 3:36 PM CLINICAL HISTORY: Screening encounter. History of benign left breast biopsy. TECHNIQUE: (B) - Bilateral CC, laterally exaggerated CC, MLO views were obtained. COMPARISON: 06/02/2018 through 03/08/2010. PARENCHYMAL PATTERN: (A) - The breast(s) demonstrate(s) scattered fibroglandular densities. FINDINGS: 2 biopsy markers are again seen in the left breast. There are coarse typically benign calcifications. There are no suspicious masses, calcifications, or areas of distortion. IMPRESSION: Benign findings. BI-RADS category 2. RECOMMENDATION: (ANNUAL) - Recommend routine annual screening mammography. BI-RADS CATEGORY: (2) - Benign Findings. STANDARD QUALIFYING STATEMENTS: 1. This examination was not reviewed with the aid of Computer-Aided Detection (CAD). 2. A negative or benign imaging report should not preclude biopsy if clinically suspicious findings are present. 3. Dense breasts may obscure an underlying neoplasm. 4. This examination was reviewed without the aid of 3D breast imaging (tomosynthesis).
== END 2019-06-12 14:53 | disposition home or self-care (01) ==
LOC: DI 14:52
DX: Z12.31 Encounter for screening mammogram for malignant neoplasm of breast (principal)
CPT/HCPCS: 77067

== ENCOUNTER 2019-11-13 09:04 | Outpatient (CLI) | payer MEDICARE, OTHER ==
[2019-11-13 11:57] LABS: BASOPHILS % (AUTO) 0.7 %; EOSINOPHILS # (AUTO) 0.2 10^3/uL (0.0-0.7); EOSINOPHILS % (AUTO) 4.2 %; HGB - HEMOGLOBIN 12.1 g/dL (12.0-16.0); LYMPHOCYTES # (AUTO) 1.4 10^3/uL (1.5-3.5); LYMPHOCYTES % (AUTO) 30.3 %; MEAN CORPUSCULAR HEMOGLOBIN 30.6 pg (27.0-31.0); MEAN CORPUSCULAR HGB CONC 32.8 g/dL (32.0-36.0); MEAN CORPUSCULAR VOLUME 93.4 fL (81.0-99.0); MEAN PLATELET VOLUME 9.8 fL (7.9-10.8); MONOCYTES # (AUTO) 0.5 10^3/uL (0.0-1.0); NEUTROPHILS # (AUTO) 2.5 10^3/uL (1.5-6.6); NEUTROPHILS % (AUTO) 54.6 %; PLT - PLATELET COUNT 281 10^3/uL (130-450); RED BLOOD COUNT 3.95 10^6/uL (4.20-5.40); RED CELL DISTRIBUTION WIDTH 13.9 % (12.0-15.0); WHITE BLOOD COUNT 4.5 x10^3/uL (4.8-10.8)
[2019-11-13 12:30] LABS: ALBUMIN 3.9 g/dL (3.2-5.5); ALBUMIN/GLOBULIN RATIO 1.1 (1.0-2.2); ALKALINE PHOSPHATASE 81 IU/L (42-121); ALT ALANINE AMINOTRANSFERASE 13 IU/L (10-60); AST ASPARTATE AMINOTRANSFERASE 20 IU/L (10-42); BILIRUBIN,TOTAL 0.8 mg/dL (0.2-1.0); BUN - BLOOD UREA NITROGEN 21 mg/dL (6-20); CALCIUM 10.2 mg/dL (8.5-10.3); CARBON DIOXIDE - CO2 26 mmol/L (21-32); CHLORIDE 106 mmol/L (101-111); CHOL/HDL RATIO 2.5 (<4.4); CHOLESTEROL 181 mg/dL; CREATININE 0.8 mg/dL (0.4-1.0); GLUCOSE 110 mg/dL (70-100); HDL CHOLESTEROL 71 mg/dL; LDL CHOLESTEROL,CALCULATED 100 mg/dL; LDL/HDL RATIO 1.4 (<4.4); SODIUM 139 mmol/L (135-145); TOTAL PROTEIN 7.4 g/dL (6.7-8.2); VLDL CHOLESTEROL 10 mg/dL
== END 2019-11-13 23:59 | disposition home or self-care (01) ==
LOC: LAB.WCP 09:04
PROVIDERS: ATTEND Physician Assistant Medical
DX: E78.5 Hyperlipidemia, unspecified (principal)
CPT/HCPCS: 36415; 80053; 80061; 83721; 85025

== ENCOUNTER 2020-05-31 19:38 | Outpatient (CLI) | payer MEDICARE, OTHER | END 2020-05-31 19:39 | disposition home or self-care (01) | LOC: COV 19:38 | PROVIDERS: ATTEND Family Medicine | DX: R05 Cough (principal); R53.83 Other fatigue; R07.0 Pain in throat; Z20.828 Contact with and (suspected) exposure to other viral communicable diseases ==

== ENCOUNTER 2020-06-09 14:05 | Outpatient (CLI) | payer MEDICARE, OTHER ==
--- NOTE | 2020-06-10 13:18 | XRAY Report ---
PROCEDURE: Hand 3 View RT INDICATIONS: R HAND PX TECHNIQUE: 3 views of the hand(s) acquired. COMPARISON: None. FINDINGS: Bones: No fractures or dislocations. No suspicious bony lesions. Soft tissues: No suspicious soft tissue calcifications. IMPRESSION: No trauma found, mild osteoarthritis at the distal inner phalangeal joints. Moderate osteoarthritis a t the base of the first metacarpal. Reviewed by: Clint Sinha MD on 06/10/2020 1:16 PM PST Approved by: Clint Sinha MD on 06/10/2020 1:16 PM [facility] Station ID: [id number]
== END 2020-06-09 23:59 | disposition home or self-care (01) ==
LOC: DI.N 14:05
PROVIDERS: ATTEND Family Medicine
DX: M19.041 Primary osteoarthritis, right hand (principal)

== ENCOUNTER 2020-07-01 10:34 | Outpatient (CLI) | payer MEDICARE, OTHER ==
[2020-07-01 17:49] LABS: BASOPHILS # (AUTO) 0.1 10^3/uL (0.0-0.1); BASOPHILS % (AUTO) 1.4 %; EOSINOPHILS # (AUTO) 0.1 10^3/uL (0.0-0.7); EOSINOPHILS % (AUTO) 2.3 %; HGB - HEMOGLOBIN 13.1 g/dL (12.0-16.0); LYMPHOCYTES # (AUTO) 1.2 10^3/uL (1.5-3.5); LYMPHOCYTES % (AUTO) 23.6 %; MEAN CORPUSCULAR HEMOGLOBIN 30.5 pg (27.0-31.0); MEAN CORPUSCULAR HGB CONC 32.8 g/dL (32.0-36.0); MEAN CORPUSCULAR VOLUME 93.2 fL (81.0-99.0); MEAN PLATELET VOLUME 10.4 fL (7.9-10.8); MONOCYTES # (AUTO) 0.4 10^3/uL (0.0-1.0); MONOCYTES % (AUTO) 7.7 %; NEUTROPHILS # (AUTO) 3.4 10^3/uL (1.5-6.6); NEUTROPHILS % (AUTO) 64.8 %; PLT - PLATELET COUNT 265 10^3/uL (130-450); RED BLOOD COUNT 4.29 10^6/uL (4.20-5.40); RED CELL DISTRIBUTION WIDTH 14.3 % (12.0-15.0); WHITE BLOOD COUNT 5.2 x10^3/uL (4.8-10.8)
[2020-07-01 17:58] LABS: ALBUMIN 4.5 g/dL (3.2-5.5); ALBUMIN/GLOBULIN RATIO 1.3 (1.0-2.2); BILIRUBIN,TOTAL 0.8 mg/dL (0.2-1.0); CALCIUM 10.7 mg/dL (8.5-10.3); CREATININE 0.7 mg/dL (0.4-1.0); TOTAL PROTEIN 7.9 g/dL (6.7-8.2)
== END 2020-07-01 23:59 | disposition home or self-care (01) ==
LOC: LAB.N 10:34
PROVIDERS: ATTEND Nurse Practitioner
DX: M79.641 Pain in right hand (principal); R23.2 Flushing; S67.21XA Crushing injury of right hand, initial encounter
CPT/HCPCS: 36415; 80053; 84443; 85025

== ENCOUNTER 2020-07-04 14:19 | Outpatient (CLI) | payer MEDICARE, OTHER ==
--- NOTE | 2020-07-05 08:28 | Mammography Report ---
BILATERAL DIGITAL SCREENING MAMMOGRAM 3D/2D: 07/04/2020 CLINICAL: Routine screening. Comparison is made to exams dated: 06/12/2019 mammogram, 06/02/2018 mammogram, and 04/30/2017 mammogr am - [facility]. There are scattered fibroglandular elements in both breasts. There are biopsy clips in the left breast. No significant masses, calcifications, or other findings are seen in either breast. There has been no significant interval change. IMPRESSION: NEGATIVE There is no mammographic evidence of malignancy. A 1 year screening mammogram is recommended. This exam was interpreted at Station ID: [id number]. NOTE: For mammograms, a report in lay terms will be sent to the patient. Approximately 15% of breast malignancies will not be visualized mammographically. In the management of a palpable breast mass, a negative mammogram must not discourage biopsy of a clinically suspicious lesion. Electronically Signed By: Po Wang M.D. ar/lulúrad:07/04/2020 15:28:29 ACR BI-RADS Category 1: Negative 3341F PARENCHYMAL PATTERN: (A) - The breast(s) demonstrate(s) scattered fibroglandular densities. BI-RADS CATEGORY: (1) - 1 RECOMMENDATION: (ANNUAL) - Recommend routine annual screening mammography. [id number] 1 year screening LATERALITY: (B)
== END 2020-07-04 14:20 | disposition home or self-care (01) ==
LOC: DI.N 14:19
DX: Z12.31 Encounter for screening mammogram for malignant neoplasm of breast (principal)

== ENCOUNTER 2020-07-22 12:38 | Outpatient (CLI) | payer MEDICARE, OTHER | END 2020-07-22 12:39 | disposition home or self-care (01) | LOC: COV 12:38 | PROVIDERS: ATTEND Orthopaedic Surgery | DX: Z01.812 Encounter for preprocedural laboratory examination (principal); G56.02 Carpal tunnel syndrome, left upper limb; Z20.822 Contact with and (suspected) exposure to COVID-19 ==

== ENCOUNTER 2020-07-27 10:59 | Day surgery (SDC) | payer MEDICARE, OTHER ==
[2020-07-27] MEDS ORDERED: LIDOCAINE 2%-EPI 1:100000 20 ML MDV ONE (11:08)
--- NOTE | 2020-07-27 11:39 | ANESTHESIA ---
Pre-Anesthesia VS, & Labs - Diagnosis left carpal tunnel syndrome - Procedure left carpal tunnel release Vital Signs: Temp Pulse Resp BP Pulse Ox 36.7 C 68 14 145/53 H 98 07/27/20 11:21 07/27/20 11:21 07/27/20 11:21 07/27/20 11:21 07/27/20 11:21 Height: 3 ft 9 in Weight (kg): 61.8 kg Body Mass Index: 47.2 BMI Classification: Morbidly Obese - Is Patient ?: No Home Medications and Allergies Home Medications: Ambulatory Orders Biotin 5 mg PO DAILY 07/19/20 Calcium Citrate/Vitamin D3 [Citracal-Vit D3 200 mg-250 Tab] 1 each PO BID 07/19/20 Cyanocobalamin (Vitamin B-12) [Vitamin B-12] 1,000 mcg PO DAILY 07/19/20 Dicyclomine [Bentyl] 10 mg PO BID 07/19/20 Ubidecarenone [Co Q-10] 300 mg PO DAILY 07/19/20 Aspirin [Aspirin EC] 81 mg PO DAILY 11/16/12 Cholecalciferol (Vitamin D3) [Vitamin D] 5,000 unit PO DAILY 11/16/12 Cyclosporine [Restasis] 1 each EACHEYE DAILY 11/16/12 Magnesium Citrate [Citrate of Magnesia] 250 mg PO BID 11/16/12 Metoprolol Succinate [Toprol Xl] 25 mg PO BID 11/16/12 Omeprazole [PriLOSEC] 20 mg PO DAILY 07/18/15 Diltiazem HCl [Diltiazem 24Hr ER] 120 mg PO BID 12/23/18 Losartan [Cozaar] 25 mg PO DAILY 12/23/18 Biotin 5 mg PO DAILY 07/19/20 Calcium Citrate/Vitamin D3 [Citracal-Vit D3 200 mg-250 Tab] 1 each PO BID 07/19/20 Cyanocobalamin (Vitamin B-12) [Vitamin B-12] 1,000 mcg PO DAILY 07/19/20 Dicyclomine [Bentyl] 10 mg PO BID 07/19/20 Ubidecarenone [Co Q-10] 300 mg PO DAILY 07/19/20 Allergies/Adverse Reactions: Allergies Allergy/AdvReac Type Severity Reaction Status Date / Time guaifenesin [From Entex LA] Allergy Unknown Verified 07/19/20 14:52 leflunomide Allergy Rash Verified 07/19/20 14:52 phenylephrine [From Entex LA] Allergy Unknown Verified 07/19/20 14:52 phenylpropanolamine Allergy Unknown Verified 07/19/20 14:52 [From Entex LA] pseudoephedrine Allergy Rash Verified 07/19/20 14:52 Iodinated Contrast Media AdvReac Intermediate Rash Verified 12/23/18 19:29 [Iodinated Contrast Media - IV Dye] pravastatin AdvReac Cramps Verified 07/19/20 14:52 Anes History & Medical History - Anesthetic History Anesthesia Complications: reports: No previous complications - Medical History Cardiovascular: reports: Hypertension, High cholesterol Pulmonary: reports: None Gastrointestinal: reports: GERD, Other Urinary: reports: Incontinence, Frequency Musculoskeletal: reports: Osteoarthritis, Rheumatoid arthritis Endocrine/Autoimmune: reports: None Skin: reports: None Smoking Status: Never smoker - Surgical History General: reports: Colonoscopy Eyes Ears Nose Throat (EENT): reports: Tonsil/Adenoidectomy Gynecologic: reports: section Exam General: Alert Dental: Dentures full Upper Mouth Opening: Greater than 4 Fingerbreadths Neck Mobility: Normal Mallampati classification: II Thyromental Distance: greater than 6 cm Respiratory: Lungs clear Cardiovascular: Regular rate Plan Anesthesia Type: MAC Consent for Procedure(s) Verified and Reviewed: Yes Code Status: Attempt Resuscitation ASA classification: 2-Mild systemic disease Is this case an emergency?: No
[2020-07-27] MEDS ORDERED: MIDAZOLAM 2 MG/2 ML VIAL ONE (12:00)
[2020-07-27] MEDS ORDERED: PROPOFOL 200 MG/20 ML VIAL IVP ONE (12:01)
[2020-07-27] MEDS ORDERED: fentaNYL 100 MCG/2 ML VIAL ONE (12:01)
[2020-07-27] MEDS ORDERED: BUPIVACAINE 0.5% PF 10 ML VIAL ONE (12:31)
[2020-07-27] MEDS ORDERED: LIDOCAINE 2%-EPI 1:100000 20 ML MDV SUBQ ONE (12:37)
[2020-07-27] MEDS ORDERED: BUPIVACAINE 0.5% PF 10 ML VIAL SUBQ ONE (12:38)
--- NOTE | 2020-07-27 12:41 | OPERATIVE REPORT ---
Operative Report - General Procedure Date: 07/27/20 Planned Procedure: Left carpal tunnel release Pre-Op Diagnosis: Left carpal tunnel syndrome Procedure Performed: Left carpal tunnel release Post Op Diagnosis: Same as preoperative diagnosis - Procedure Note Primary Surgeon: Darrina Velazco MD Secondary Surgeon: Kaushik OMER Anesthesia Provider: Kinga Chapman CRNA Anesthesia Technique: MAC Estimated Blood Loss (mL): 3 Indications: And this is a 79-year-old woman with paresthesias in the median nerve distribution without improvement, positive Tinel and Phalen; symptoms consistent with left carpal tunnel syndrome and this has been documented in the preoperative history and physical. Findings: There is mild atrophy of the median nerve beneath the transverse carpal ligament, nonspecific tenosynovitis. Complications: None noted - Other Other Information/Narrative: The patient was brought to the operating room and placed in a supine position. The left arm was placed in a arm extension table. A pneumatic tourniquet had been applied to the proximal left arm over cast padding. The left upper extremity was prepped and draped in a sterile manner in the usual fashion. A timeout procedure was performed by the entire operating room team and all were in agreement. 8 cc of 2% lidocaine / 0.5% marcaine with epinephrine was injected about the left carpal tunnel using a volar approach just proximal to the wrist flexor crease, ulnar to the palmaris longus. An additional amount was injected subcutaneously. A longitudinal incision was made in line with the third webspace. The incision began just distal to the wrist flexor crease and extended for 2.5 cm. The subcutaneous tissue and palmar aponeurosis were divided in line with the incision. The transverse carpal ligament was identified proximally and was incised. A blunt obturator was inserted beneath the transverse carpal ligament. The transverse carpal ligament was then divided from proximal to distal under direct visualization. The transverse carpal ligament was divided proximally with blunt tip scissors to achieve a full release of the carpal tunnel. The median nerve was inspected. The wound was irrigated. The skin was closed with interrupted 4-0 nylon vertical mattress suture. A bulky hand dressing was applied to the left hand and wrist with mild compression. A pneumatic tourniquet was not utilized during the procedure. Hemostasis was achieved with letter cautery. The patient tolerated procedure wellA physician human services assistant was utilized to help protect the median nerve and vital structures as well as to facilitate suture closure and dressing.
[2020-07-27] MEDS ORDERED: KETOROLAC 15 MG/ML VIAL IVP STA (12:53)
[2020-07-27] MEDS ORDERED: HYDROcod/ACETAM 5/325 MG TABLET PO PRN (12:53)
[2020-07-27] MEDS ORDERED: LACTATED RINGERS 500 ML IV ONE (12:56)
[2020-07-27 13:57] VITALS: BP 145/56
== END 2020-07-27 11:00 | disposition home or self-care (01) ==
LOC: SDS 10:59
PROVIDERS: ATTEND Orthopaedic Surgery
DX: G56.02 Carpal tunnel syndrome, left upper limb (principal); I10 Essential (primary) hypertension; E78.00 Pure hypercholesterolemia, unspecified; M06.9 Rheumatoid arthritis, unspecified; M81.0 Age-related osteoporosis without current pathological fracture; M19.90 Unspecified osteoarthritis, unspecified site; K21.9 Gastro-esophageal reflux disease without esophagitis; F40.240 Claustrophobia; R32 Unspecified urinary incontinence; R35.0 Frequency of micturition; E66.01 Morbid (severe) obesity due to excess calories; Z68.42 Body mass index [BMI] 45.0-49.9, adult; Z79.82 Long term (current) use of aspirin; Z79.899 Other long term (current) drug therapy
CPT/HCPCS: 64721; J7120

== ENCOUNTER 2020-08-10 13:11 | Outpatient (CLI) | payer MEDICARE, OTHER ==
--- NOTE | 2020-08-10 15:35 | XRAY Report ---
PROCEDURE: Foot 3 View LT INDICATIONS: INJURY L FOOT TECHNIQUE: 4 views of the foot were acquired. COMPARISON: None FINDINGS: Bones: There is mild osteopenia. Osteoarthritic changes are noted midfoot and forefoot joints. Well- defined plantar and dorsal calcaneal enthesophytes are seen. Cortical irregularity involving third mi ddle phalangeal shaft extending to third distal interphalangeal joint. No suspicious bony lesions. Soft tissues: No tibiotalar joint effusion. Achilles tendon appears normal. IMPRESSION: Finding is concerning for age-indeterminate intra-articular fracture involving distal shaft of third middle phalanx. Osteopenia. Midfoot and forefoot joint osteoarthritis. Reviewed by: Miguel Ángel Macias MD on 08/10/2020 3:34 PM PST Approved by: Miguel Ángel Macias MD on 08/10/2020 3:34 PM PST Station ID: [id number]
== END 2020-08-10 13:12 | disposition home or self-care (01) ==
LOC: DI 13:11
PROVIDERS: ATTEND Podiatrist
DX: S99.922A Unspecified injury of left foot, initial encounter (principal); M19.072 Primary osteoarthritis, left ankle and foot; M85.872 Other specified disorders of bone density and structure, left ankle and foot

== ENCOUNTER 2020-11-15 08:00 | Outpatient (CLI) | payer MEDICARE, OTHER ==
[2020-11-15 12:37] LABS: ALBUMIN/GLOBULIN RATIO 1.2 (1.0-2.2); ALKALINE PHOSPHATASE 69 IU/L (42-121); ALT ALANINE AMINOTRANSFERASE 13 IU/L (10-60); AST ASPARTATE AMINOTRANSFERASE 21 IU/L (10-42); BILIRUBIN,TOTAL 0.4 mg/dL (0.2-1.0); BUN - BLOOD UREA NITROGEN 20 mg/dL (6-20); CARBON DIOXIDE - CO2 26 mmol/L (21-32); CHLORIDE 106 mmol/L (101-111); CHOL/HDL RATIO 2.6 (<4.4); CHOLESTEROL 199 mg/dL; CREATININE 0.7 mg/dL (0.4-1.0); GFR - MDRD 81 (>89); GLUCOSE 112 mg/dL (70-100); HDL CHOLESTEROL 76 mg/dL; LDL CHOLESTEROL,CALCULATED 110 mg/dL; LDL/HDL RATIO 1.4 (<4.4); POTASSIUM 3.9 mmol/L (3.5-5.0); SODIUM 142 mmol/L (135-145); TOTAL PROTEIN 7.3 g/dL (6.7-8.2); TRIGLYCERIDES 64 mg/dL; VLDL CHOLESTEROL 13 mg/dL
== END 2020-11-15 23:59 | disposition home or self-care (01) ==
LOC: LAB.WCP 08:00
PROVIDERS: ATTEND Physician Assistant Medical
DX: E78.5 Hyperlipidemia, unspecified (principal)
CPT/HCPCS: 36415; 80053; 80061; 83721

== ENCOUNTER 2020-12-07 08:00 | Outpatient (CLI) | payer MEDICARE, OTHER ==
[2020-12-07 13:29] LABS: FECAL OCCULT BLOOD (FIT) NEGATIVE (NEGATIVE)
== END 2020-12-07 23:59 | disposition home or self-care (01) ==
LOC: LAB.R 08:00
PROVIDERS: ATTEND Physician Assistant Medical
DX: K92.1 Melena (principal)
CPT/HCPCS: 82274

== ENCOUNTER 2021-01-17 13:54 | Outpatient (CLI) | payer MEDICARE, OTHER | END 2021-01-17 13:55 | disposition home or self-care (01) | LOC: NS 13:54 | DX: Z71.3 Dietary counseling and surveillance (principal); K58.2 Mixed irritable bowel syndrome | CPT/HCPCS: 97802 ==

== ENCOUNTER 2021-02-13 13:56 | Outpatient (CLI) | payer MEDICARE, OTHER | END 2021-02-13 13:57 | disposition home or self-care (01) | LOC: COV 13:56 | PROVIDERS: ATTEND Family Medicine | DX: Z20.822 Contact with and (suspected) exposure to COVID-19 (principal) ==

== ENCOUNTER 2021-03-29 10:37 | Outpatient (CLI) | payer MEDICARE, OTHER ==
--- NOTE | 2021-04-03 15:53 | DEXA Report ---
PROCEDURE: Dexa Spine and/or Hip INDICATIONS: POST MENOPAUSAL TECHNIQUE: Dual energy x-ray absorptiometry (DXA) was performed on a [employer] System. Regions measur ed are the AP Spine, femoral neck, and if needed forearm. COMPARISON: DEXA 02/20/2019 FINDINGS: Lumbar Spine: Bone Mineral Density 1.021 g/cm/cm,T score -1.3, 0.2 Left Hip: Bone Mineral Density 0.827 g/cm/cm,T score -1.4, -1.9 Left Femoral Neck: Bone Mineral Density 0.905 g/cm/cm, T score -1.0, -1.3 (T score greater or equal to -1.0: NORMAL) (T score from -1.1 to -2.4: OSTEOPENIA) (T score less than or equal to -2.5 to: OSTEOPOROSIS) Impression: Progressive osteopenia within the spine as well as less prominent osteopenia within hip a nd femoral neck. Patients with diagnosis of osteoporosis or osteopenia should have regular bone mineral density assess ment. For those eligible for Medicare, routine testing is allowed once every 2 years. Testing frequ ency can be increased for patients who have rapidly progressing disease or for those who are receivin g medical therapy to restore bone mass. Reviewed by: Mirtha Reynaga MD on 04/03/2021 3:52 PM PDT Approved by: Mirtha Reynaga MD on 04/03/2021 3:52 PM PDT Station ID: [id number]
== END 2021-03-29 10:38 | disposition home or self-care (01) ==
LOC: DI 10:37
PROVIDERS: ATTEND Physician Assistant Medical
DX: M85.89 Other specified disorders of bone density and structure, multiple sites (principal); Z78.0 Asymptomatic menopausal state

== ENCOUNTER 2021-04-07 14:52 | Outpatient (CLI) | payer MEDICARE, OTHER ==
--- NOTE | 2021-04-07 18:33 | Ultrasound Report ---
PROCEDURE: Pelvic w/Transvaginal INDICATIONS: WEIGHT LOSS TECHNIQUE: Real-time scanning was performed of the pelvic organs, with image documentation. Additional endovagi nal scanning was necessary due to incomplete visualization of the adnexal and endometrial structures by transabdominal scanning. COMPARISON: 12/17/2015 FINDINGS: No pathologic free abdominal or pelvic fluid. Uterus: Uterus is normal in size at 6.9 x 2.8 x 4 cm. The endometrium measures 1 mm in combined thi ckness. The uterus demonstrates a heterogeneous appearance, with multiple fibroids seen. The largest are listed below: Left anterior, intramural, 1.2 x 1.27 m, calcified Left posterior, intramural, 1.1 x 1.2 x 0.7, calcified Left mid uterus, intramural, 1.2 x 1.2 x 0.7 cm, calcified Ovaries: The left ovary measures 1.1 x 0.9 x 1 0.2 cc meters, with a calculated ovarian volume of 0. 6 cc. The left ovary is not seen on the current study. No adnexal masses are seen on either side. IMPRESSION: No imaging explanation is found for the patient's presenting symptoms. Multiple calcified uterine fibroids are again seen. Reviewed by: Toan Mann MD on 04/07/2021 5:32 PM FERNANDO Approved by: Toan Mann MD on 04/07/2021 5:32 PM FERNANDO Station ID: [id number]
== END 2021-04-07 14:53 | disposition home or self-care (01) ==
LOC: DI 14:52
PROVIDERS: ATTEND Physician Assistant Medical
DX: R63.4 Abnormal weight loss (principal); D25.1 Intramural leiomyoma of uterus

== ENCOUNTER 2021-05-11 08:00 | Outpatient (CLI) | payer MEDICARE, OTHER ==
[2021-05-11 12:06] LABS: BASOPHILS # (AUTO) 0.1 10^3/uL (0.0-0.1); BASOPHILS % (AUTO) 1.2 %; EOSINOPHILS # (AUTO) 0.2 10^3/uL (0.0-0.7); EOSINOPHILS % (AUTO) 4.4 %; HCT - HEMATOCRIT 35.8 % (37.0-47.0); HGB - HEMOGLOBIN 11.6 g/dL (12.0-16.0); LYMPHOCYTES # (AUTO) 1.7 10^3/uL (1.5-3.5); LYMPHOCYTES % (AUTO) 32.9 %; MEAN CORPUSCULAR HEMOGLOBIN 30.4 pg (27.0-31.0); MEAN CORPUSCULAR HGB CONC 32.4 g/dL (32.0-36.0); MEAN CORPUSCULAR VOLUME 93.7 fL (81.0-99.0); MEAN PLATELET VOLUME 10.1 fL (7.9-10.8); MONOCYTES # (AUTO) 0.6 10^3/uL (0.0-1.0); MONOCYTES % (AUTO) 10.8 %; NEUTROPHILS # (AUTO) 2.6 10^3/uL (1.5-6.6); NEUTROPHILS % (AUTO) 50.5 %; PLT - PLATELET COUNT 265 10^3/uL (130-450); RED BLOOD COUNT 3.82 10^6/uL (4.20-5.40); RED CELL DISTRIBUTION WIDTH 14.1 % (12.0-15.0); WHITE BLOOD COUNT 5.2 x10^3/uL (4.8-10.8)
[2021-05-11 12:53] LABS: ALBUMIN 3.9 g/dL (3.2-5.5); ALBUMIN/GLOBULIN RATIO 1.1 (1.0-2.2); ALKALINE PHOSPHATASE 80 IU/L (42-121); ALT ALANINE AMINOTRANSFERASE 13 IU/L (10-60); AST ASPARTATE AMINOTRANSFERASE 22 IU/L (10-42); BILIRUBIN,TOTAL 0.7 mg/dL (0.2-1.0); BUN - BLOOD UREA NITROGEN 26 mg/dL (6-20); CALCIUM 11.1 mg/dL (8.5-10.3); CARBON DIOXIDE - CO2 26 mmol/L (21-32); CHLORIDE 104 mmol/L (101-111); CHOL/HDL RATIO 2.1 (<4.4); CHOLESTEROL 187 mg/dL; CREATININE 0.9 mg/dL (0.4-1.0); GFR - MDRD 60 (>89); GLUCOSE 101 mg/dL (70-100); HDL CHOLESTEROL 87 mg/dL; LDL CHOLESTEROL,CALCULATED 89 mg/dL; SODIUM 138 mmol/L (135-145); TOTAL PROTEIN 7.3 g/dL (6.7-8.2); TRIGLYCERIDES 56 mg/dL; VLDL CHOLESTEROL 11 mg/dL
== END 2021-05-11 23:59 | disposition home or self-care (01) ==
LOC: LAB.WCP 08:00
PROVIDERS: ATTEND Physician Assistant Medical
DX: E78.5 Hyperlipidemia, unspecified (principal); R63.4 Abnormal weight loss
CPT/HCPCS: 36415; 80053; 80061; 83721; 85025

== ENCOUNTER 2021-06-08 10:35 | Outpatient (CLI) | payer MEDICARE, OTHER ==
[2021-06-08] MEDS ORDERED: IOPAMIDOL-300 50 ML VIAL ONE (11:39)
[2021-06-08] MEDS ORDERED: iohexoL-300 100 ML VIAL ONE (12:43)
--- NOTE | 2021-06-08 17:01 | CT Report ---
PROCEDURE: Abdomen/Pelvis W INDICATIONS: WEIGHT LOSS CONTRAST: IV CONTRAST: Optiray 320 ml: 90 PO CONTRAST: Isovue 300 ml50 TECHNIQUE: After the administration of oral and intravenous contrast, 5 mm thick sections acquired from the diap hragms to the symphysis. 5 mm thick coronal and sagittal reformats were acquired. For radiation dos e reduction, the following was used: automated exposure control, adjustment of mA and/or kV accordin g to patient size. COMPARISON: Same day CT chest. FINDINGS: Image quality: Excellent. ABDOMEN: Lung bases: Minimal dependent airspace opacity. Heart size is within normal limits. Small hiatal radha ia. Please see separately dictated CT chest. Solid organs: Liver and spleen are normal in size and enhancement. No focal lesion is seen. Gallblad angelica is decompressed. Biliary system is non dilated. Mass in the head of the pancreas measuring 3.3 x 2.9 cm, (08/29). The duct in the pancreatic head is increased in conspicuity. No vascular involvement is appreciated. No adrenal nodules. Kidneys demonstrate normal size and enhancement, without hydron ephrosis. Peritoneum and bowel: Pancreatic tumor abuts the second portion of the duodenum. No small bowel obstr uction. Normal appendix. No free fluid or air. Nodes and vessels: No retroperitoneal or mesenteric adenopathy by size criteria. Aorta and inferior vena cava are normal in size. Miscellaneous: No ventral hernias. PELVIS: Genitourinary: Bladder wall thickness is normal. Calcified fibroids. Miscellaneous: No inguinal hernias or adenopathy. Bones: No suspicious bony lesions. DDD. Bilateral hip DJD. No vertebral body compression fractures. IMPRESSION: 1. Mass at the head of the pancreas measuring 3.3 cm. This is suspicious for pancreatic adenocarcinom a. 2. No significant pancreatic ductal dilatation. No biliary ductal dilatation. 3. No conspicuous vascular involvement. No metastatic disease identified. 4. Small hiatal hernia. Please see separately dictated same day CT chest. Results were conveyed to office of Dr. Deepthi Ridley at 06/08/2021 4:59 PM PST. Reviewed by: Jaquan Kowalski MD on 06/08/2021 4:59 PM PST Approved by: Jaquan Kowalski MD on 06/08/2021 4:59 PM PST Station ID: [id number]
--- NOTE | 2021-06-08 17:30 | CT Report ---
PROCEDURE: CHEST W INDICATIONS: WEIGHT LOSS CONTRAST: IV CONTRAST: Optiray 320 ml: 90 PO CONTRAST: Isovue 300 ml50 TECHNIQUE: After the administration of intravenous contrast, 1 mm axial images were acquired from the pulmonary apices through the posterior costophrenic angles. Axial 5 mm soft tissue kernel reconstructions were performed as well as 8 mm axial MIP and coronal and sagittal 5 mm reformations. For radiation dose reduction, the following was used: automated exposure control, adjustment of mA and/or kV according to patient size. COMPARISON: None. FINDINGS: Image quality: Adequate, although there is mild respiratory motion at the lung bases.. Lungs and pleura: In the lowest aspect of the right middle lobe and lingula, there are several tiny p atchy areas of alveolar opacity. There is probably mild bronchial wall thickening in the left lower l obe at the lung base as well. In the right middle lobe, there are scattered areas of small airway occ lusion. There is mild subpleural reticulation anteriorly in the right upper and left upper lobes. No other focal dense parenchymal consolidations. No pleural effusions or pneumothorax. Central airways are patent. Mediastinum: Heart size is mildly enlarged, particularly the left atrium. Heavy coronary artery quita cification. No pericardial effusion. No mediastinal or hilar adenopathy by size criteria. Thoracic aorta and central pulmonary arteries are normal in size. Esophagus is normal in caliber. Small hiata l hernia. Bones and chest wall: Hypertrophic degenerative changes at the sternoclavicular articulation, right greater than left. No suspicious bony lesions. No vertebral body compression fractures. No axillary or supraclavicular adenopathy by size criteria. The thyroid is normal in size and there are no inci dental findings.. Abdomen: There is a partially imaged hypodense pancreatic mass along the right lateral aspect of the uncinate process measuring at least 3.1 cm. The upper abdomen is within normal limits. IMPRESSION: 1. Minor patchy alveolar opacity is at the base of the right middle lobe and lingula, along with occa sional scattered airway occlusions and bronchial wall thickening suggests bronchitis and bronchopneum onia. Correlate clinically. 2. Partially imaged pancreatic mass. Please see accompanying CT abdomen pelvis for further details. 3. Mild left atrial enlargement. 4. Heavy coronary artery calcification. 5. Small hiatal hernia. Reviewed by: Miguelina Lee MD on 06/08/2021 5:29 PM PST Approved by: Miguelina Lee MD on 06/08/2021 5:29 PM PST Station ID: [id number]
[2021-06-08] MEDS ORDERED: iohexoL-300 100 ML VIAL IVP ONE (21:08)
[2021-06-08] MEDS ORDERED: IOPAMIDOL-300 50 ML VIAL PO ONE (21:09)
== END 2021-06-08 10:36 | disposition home or self-care (01) ==
LOC: DI 10:35
PROVIDERS: ATTEND Physician Assistant Medical
DX: R63.4 Abnormal weight loss (principal); K86.9 Disease of pancreas, unspecified; K44.9 Diaphragmatic hernia without obstruction or gangrene; R91.8 Other nonspecific abnormal finding of lung field; I51.7 Cardiomegaly; I25.10 Atherosclerotic heart disease of native coronary artery without angina pectoris
CPT/HCPCS: 71260; 74177; Q9967

== ENCOUNTER 2021-07-17 13:01 | Outpatient (CLI) | payer MEDICARE, OTHER ==
[2021-07-17 17:48] LABS: BASOPHILS # (AUTO) 0.1 10^3/uL (0.0-0.1); BASOPHILS % (AUTO) 1.1 %; EOSINOPHILS # (AUTO) 0.2 10^3/uL (0.0-0.7); EOSINOPHILS % (AUTO) 2.6 %; HCT - HEMATOCRIT 34.7 % (37.0-47.0); HGB - HEMOGLOBIN 11.1 g/dL (12.0-16.0); LYMPHOCYTES # (AUTO) 1.5 10^3/uL (1.5-3.5); MEAN CORPUSCULAR HEMOGLOBIN 29.5 pg (27.0-31.0); MEAN CORPUSCULAR VOLUME 92.3 fL (81.0-99.0); MEAN PLATELET VOLUME 10.2 fL (7.9-10.8); MONOCYTES # (AUTO) 0.5 10^3/uL (0.0-1.0); MONOCYTES % (AUTO) 7.7 %; NEUTROPHILS # (AUTO) 4.4 10^3/uL (1.5-6.6); NEUTROPHILS % (AUTO) 66.4 %; PLT - PLATELET COUNT 289 10^3/uL (130-450); RED BLOOD COUNT 3.76 10^6/uL (4.20-5.40); WHITE BLOOD COUNT 6.6 x10^3/uL (4.8-10.8)
[2021-07-17 18:10] LABS: ALBUMIN 3.8 g/dL (3.2-5.5); ALBUMIN/GLOBULIN RATIO 1.1 (1.0-2.2); BILIRUBIN,TOTAL 0.4 mg/dL (0.2-1.0); CALCIUM 10.1 mg/dL (8.5-10.3); CREATININE 0.8 mg/dL (0.4-1.0); POTASSIUM 4.2 mmol/L (3.5-5.0); TOTAL PROTEIN 7.2 g/dL (6.7-8.2)
== END 2021-07-17 13:02 | disposition home or self-care (01) ==
LOC: LAB.N 13:01
PROVIDERS: ATTEND Nurse Practitioner Family
DX: D64.9 Anemia, unspecified (principal); E83.52 Hypercalcemia
CPT/HCPCS: 36415; 80053; 83540; 84466; 85025

== ENCOUNTER 2021-08-23 15:36 | Outpatient (CLI) | payer MEDICARE, OTHER ==
--- NOTE | 2021-08-24 09:00 | Ultrasound Report ---
PROCEDURE: Duplex Lwr Ext Arterial Bilat INDICATIONS: CAD TECHNIQUE: Color and pulse Doppler interrogation was performed of both lower extremity arterial systems, with im age documentation. COMPARISON: None FINDINGS: Right lower extremity: Common femoral artery: 119 cm/sec, with triphasic flow. Deep femoral artery: 77.5 cm/sec, with biphasic flow. Proximal superficial femoral artery: 121.9 cm/sec, with biphasic flow. Mid superficial femoral artery: 119.0 cm/sec, with biphasic flow. Distal superficial femoral artery: 111.6 cm/sec, with biphasic flow. Popliteal artery: 80.9 cm/sec, with biphasic flow. Posterior tibial artery: 83.6 cm/sec, with biphasic/monophasic flow. Anterior tibial artery/dorsalis pedis: 109.6/84.2 cm/sec, with biphasic flow. Martinez-scale imaging description: Scattered plaque. No significant stenosis from the common femoral th rough the popliteal. At least two-vessel runoff. Left lower extremity: Common femoral artery: 114.5 cm/sec, with biphasic flow. Deep femoral artery: 115.1 cm/sec, with biphasic flow. Proximal superficial femoral artery: 118.2 cm/sec, with biphasic flow. Mid superficial femoral artery: 112.7 cm/sec, with biphasic flow. Distal superficial femoral artery: 96 cm/sec, with biphasic flow. Popliteal artery: 84 cm/sec, with biphasic flow. Posterior tibial artery: 126.3 cm/sec, with biphasic flow. Anterior tibial artery/dorsalis pedis: 94.1/103 cm/sec, with biphasic flow. Martinez-scale imaging description: Scattered plaque. No significant stenosis from the common femoral th rough the popliteal. At least two-vessel runoff. IMPRESSION: 1. No evidence of significant inflow stenotic disease. 2. Mild diffuse plaque. 3. No hemodynamically significant stenosis from the common femoral through the popliteals bilaterally . 4. At least two-vessel runoff bilaterally. Reviewed by: Goran Thomas MD on 08/24/2021 8:58 AM PDT Approved by: Goran Thomas MD on 08/24/2021 8:58 AM PDT Station ID: [id number]
== END 2021-08-23 15:37 | disposition home or self-care (01) ==
LOC: DI 15:36
PROVIDERS: ATTEND Internal Medicine Cardiovascular Disease
DX: I25.10 Atherosclerotic heart disease of native coronary artery without angina pectoris (principal); I47.1 Supraventricular tachycardia; I34.0 Nonrheumatic mitral (valve) insufficiency; I70.203 Unspecified atherosclerosis of native arteries of extremities, bilateral legs
CPT/HCPCS: 93925

== ENCOUNTER 2021-10-16 12:40 | Outpatient (CLI) | payer MEDICARE, OTHER ==
--- NOTE | 2021-10-16 16:20 | CT Report ---
PROCEDURE: Sinuses INDICATIONS: FACIAL SWELLING TECHNIQUE: Noncontrast 3.0 mm axial images acquired from the frontal sinuses to the mid-sella, with coronal and sagittal reformats. For radiation dose reduction, the following was used: automated exposure control , adjustment of mA and/or kV according to patient size. COMPARISON: None. FINDINGS: Image quality: Excellent. Maxillary Sinuses: No bony remodeling or destruction. Sinuses are clear. Ethmoid Air Cells: No bony remodeling or destruction. Sinuses are clear. Sphenoid Sinuses: No bony remodeling or destruction. Small mucous retention cyst noted in the left s phenoid sinus. Frontal Sinuses: No bony remodeling or destruction. Sinuses are clear. Ostiomeatal Complexes: Ostiomeatal complexes are patent. No Robert cells. Miscellaneous: Visualized intra-orbital contents are normal. No rajeev bullosa. Nasal septum is dev iated to the left. Atherosclerotic calcifications noted in the cavernous segments of the internal car otid arteries. IMPRESSION: Small left sphenoid sinus mucous retention cyst. No paranasal sinus mucosal thickening or air-fluid levels. Reviewed by: Cristy Lentz MD, PhD on 10/16/2021 4:19 PM PDT Approved by: Cristy Lentz MD, PhD on 10/16/2021 4:19 PM PDT Station ID: [id number]
== END 2021-10-16 12:41 | disposition home or self-care (01) ==
LOC: DI 12:40
PROVIDERS: ATTEND Internal Medicine
DX: J34.1 Cyst and mucocele of nose and nasal sinus (principal); R22.0 Localized swelling, mass and lump, head

== ENCOUNTER 2021-10-23 10:25 | Outpatient (CLI) | payer MEDICARE, OTHER ==
--- NOTE | 2021-10-23 11:45 | Mammography Report ---
BILATERAL DIGITAL SCREENING MAMMOGRAM: 10/23/2021 CLINICAL: Routine screening. Comparison is made to exams dated: 07/04/2020 mammogram, 06/12/2019 mammogram, and 06/02/2018 mammogram - [facility]. There are scattered fibroglandular elements in both breasts. There are biopsy clips in the left breast. No significant masses, calcifications, or other findings are seen in either breast. There has been no significant interval change. IMPRESSION: NEGATIVE There is no mammographic evidence of malignancy. A 1 year screening mammogram is recommended. This exam was interpreted at Station ID: [id number]. NOTE: For mammograms, a report in lay terms will be sent to the patient. Approximately 15% of breast malignancies will not be visualized mammographically. In the management of a palpable breast mass, a negative mammogram must not discourage biopsy of a clinically suspicious lesion. Electronically Signed By: Miguelina west/penrad:10/23/2021 11:09:09 ACR BI-RADS Category 1: Negative 3341F PARENCHYMAL PATTERN: (A) - The breast(s) demonstrate(s) scattered fibroglandular densities. BI-RADS CATEGORY: (1) - 1 RECOMMENDATION: (ANNUAL) - Recommend routine annual screening mammography. [id number] 1 year screening LATERALITY: (B)
== END 2021-10-23 10:26 | disposition home or self-care (01) ==
LOC: DI.N 10:25
DX: Z12.31 Encounter for screening mammogram for malignant neoplasm of breast (principal)

== ENCOUNTER 2022-01-31 13:33 | Outpatient (CLI) | payer MEDICARE, OTHER ==
--- NOTE | 2022-01-31 16:17 | XRAY Report ---
PROCEDURE: Sacrum/Coccyx INDICATIONS: SACRUM/COCCYX PX TECHNIQUE: 3 views of the sacrum and coccyx acquired. COMPARISON: None FINDINGS: Bones: No fractures or dislocations. No suspicious bony lesions. Mild periareolar articular osteop hyte formation at the bilateral sacroiliac and hip joints. Soft tissues: Visualized bowel gas pattern is normal. No suspicious soft tissue densities. IMPRESSION: Osteoarthritis. No acute fracture. No osseous lesion. If symptoms and/or clinical suspicion for patho logy continue, further assessment with repeat plain films, or advanced imaging (e.g., CT, MRI, or bon e scan) is recommended for further assessment. Reviewed by: Jyotsna Whitmoer MD on 01/31/2022 4:16 PM PDT Approved by: Jyotsna Whitmore MD on 01/31/2022 4:16 PM PDT Station ID: [id number]
--- NOTE | 2022-01-31 16:48 | XRAY Report ---
PROCEDURE: Ribs w/PA Chest LT INDICATIONS: L SIDED RIB PX TECHNIQUE: 3 views of the left ribs were acquired, along with a single view chest. COMPARISON: None FINDINGS: Surgical changes and devices: None. Bones and chest wall: No fractures or dislocations. No suspicious bony lesions. Overlying soft tis sues appear unremarkable. Lungs and pleura: No pleural effusions or pneumothorax. Lungs have increased interstitial markings which appear chronic otherwise appear clear. Mediastinum: Mediastinal contours appear normal. Heart size is normal. IMPRESSION: 1. No rib fractures. 2. No acute cardiopulmonary abnormality. Reviewed by: Jerrod Goode on 01/31/2022 4:47 PM PDT Approved by: Jerrod Goode on 01/31/2022 4:47 PM PDT Station ID: [id number]
== END 2022-01-31 13:34 | disposition home or self-care (01) ==
LOC: DI.N 13:33
PROVIDERS: ATTEND Physician Assistant Medical
DX: M46.1 Sacroiliitis, not elsewhere classified (principal); M16.0 Bilateral primary osteoarthritis of hip; R07.81 Pleurodynia

== ENCOUNTER 2022-06-28 10:46 | Outpatient (CLI) | payer MEDICARE, OTHER ==
--- NOTE | 2022-06-28 16:35 | XRAY Report ---
PROCEDURE: Shoulder 3 View RT INDICATIONS: shoulder px TECHNIQUE: 3 views of the shoulder were acquired. COMPARISON: None. FINDINGS: Bones: No fractures or dislocations. No suspicious bony lesions. Moderate degenerative change at th e right shoulder. Lungs appear osteopenic. Visualized ribs appear intact. Soft tissues: No suspicious soft tissue calcifications. Oval calcification in the region of the rot ator cuff. IMPRESSION: Moderate right shoulder DJD. Suspect sequelae of calcific tendinitis. Reviewed by: Jaquan Kowalski MD on 06/28/2022 4:33 PM PST Approved by: Jaquan Kowalski MD on 06/28/2022 4:33 PM PST Station ID: [id number]
== END 2022-06-28 10:47 | disposition home or self-care (01) ==
LOC: DI 10:46
PROVIDERS: ATTEND Physician Assistant Medical
DX: M19.011 Primary osteoarthritis, right shoulder (principal)

== ENCOUNTER 2022-08-14 15:00 | Outpatient (CLI) | payer MEDICARE, OTHER ==
--- NOTE | 2022-08-14 21:05 | XRAY Report ---
PROCEDURE: Lumbar Spine 2 View INDICATIONS: SACRAL BACK PAIN TECHNIQUE: 3 views of the lumbar spine were acquired. COMPARISON: CT abdomen pelvis 06/08/2021 FINDINGS: Bones: Probable lumbosacral transitional anatomy with sacralization of L5. Left convexity curvature c entered at L2-L3. Minimal wedging of the L1 superior endplate, which appears new since prior CT but i s age indeterminate. Moderate-severe multilevel degenerative changes with disc height loss, endplate spurring, and facet arthropathy. Soft tissues: Overlying bowel gas pattern is normal. Vascular calcifications are present IMPRESSION: 1. Multilevel degenerative changes of the lumbar spine. 2. Age-indeterminate minimal wedging of the L1 superior endplate. Reviewed by: Po Randall MD on 08/14/2022 9:04 PM PDT Approved by: Po Randall MD on 08/14/2022 9:04 PM PDT Station ID: [id number]
== END 2022-08-14 15:01 | disposition home or self-care (01) ==
LOC: DI 15:00
PROVIDERS: ATTEND Physician Assistant Medical
DX: M47.816 Spondylosis without myelopathy or radiculopathy, lumbar region (principal); M48.56XA Collapsed vertebra, not elsewhere classified, lumbar region, initial encounter for fracture

== ENCOUNTER 2022-09-08 09:19 | Outpatient (CLI) | payer MEDICARE, OTHER ==
[2022-09-08 19:19] LABS: BASOPHILS # (AUTO) 0.1 10^3/uL (0.0-0.1); BASOPHILS % (AUTO) 0.8 %; EOSINOPHILS # (AUTO) 0.2 10^3/uL (0.0-0.7); EOSINOPHILS % (AUTO) 3.4 %; HCT - HEMATOCRIT 35.4 % (37.0-47.0); HGB - HEMOGLOBIN 10.8 g/dL (12.0-16.0); LYMPHOCYTES # (AUTO) 1.3 10^3/uL (1.5-3.5); LYMPHOCYTES % (AUTO) 21.1 %; MEAN CORPUSCULAR HEMOGLOBIN 27.6 pg (27.0-31.0); MEAN CORPUSCULAR HGB CONC 30.5 g/dL (32.0-36.0); MEAN CORPUSCULAR VOLUME 90.3 fL (81.0-99.0); MEAN PLATELET VOLUME 10.2 fL (7.9-10.8); MONOCYTES # (AUTO) 0.6 10^3/uL (0.0-1.0); MONOCYTES % (AUTO) 9.5 %; NEUTROPHILS % (AUTO) 64.9 %; PLT - PLATELET COUNT 298 10^3/uL (130-450); RED BLOOD COUNT 3.92 10^6/uL (4.20-5.40); RED CELL DISTRIBUTION WIDTH 16.1 % (12.0-15.0); WHITE BLOOD COUNT 6.1 x10^3/uL (4.8-10.8)
[2022-09-08 19:38] LABS: % IRON SATURATION 23 % (20-50); IRON 105 ug/dL (28-170); TOTAL IRON BINDING CAPACITY 451 ug/dL (250-450); TRANSFERRIN 322 mg/dL (192-382)
[2022-09-08 19:57] LABS: FERRITIN 12.9 ng/mL (11.0-306.8)
[2022-09-08 20:00] LABS: FOLATE 17.9 ng/mL (5.90 - >24.8)
== END 2022-09-08 09:20 | disposition home or self-care (01) ==
LOC: LAB.N 09:19
PROVIDERS: ATTEND Physician Assistant Medical
DX: D64.9 Anemia, unspecified (principal)
CPT/HCPCS: 36415; 82607; 82728; 82746; 83540; 84466; 85025

== ENCOUNTER 2022-09-14 08:00 | Outpatient (CLI) | payer MEDICARE, OTHER ==
[2022-09-14 20:40] LABS: FECAL OCCULT BLOOD (FIT) NEGATIVE (NEGATIVE)
== END 2022-09-14 23:59 | disposition home or self-care (01) ==
LOC: LAB.N 08:00
PROVIDERS: ATTEND Family Medicine
DX: D64.9 Anemia, unspecified (principal)
CPT/HCPCS: 82274

== ENCOUNTER 2022-09-22 09:06 | Outpatient (CLI) | payer MEDICARE, OTHER ==
[2022-09-25 13:10] LABS: BETA-2 MICROGLOBULIN SERUM 2.6 mg/L (0.6-2.4)
[2022-09-25 18:07] LABS: KAPPA FREE LT CHAINS SERUM 29.3 mg/L (3.3-19.4); KAPPA/LAMBDA RATIO SERUM 1.68 (0.26-1.65); LAMBDA FREE LT CHAINS SERUM 17.4 mg/L (5.7-26.3)
[2022-09-26 05:13] LABS: FREE KAPPA LT CHAINS URINE 21.63 mg/L (1.17-86.46); FREE LAMBDA LT CHAINS URINE 2.38 mg/L (0.27-15.21); KAPPA/LAMBDA RATIO URINE 9.09 (1.83-14.26)
== END 2022-09-22 09:07 | disposition home or self-care (01) ==
LOC: LAB.N 09:06
PROVIDERS: ATTEND Family Medicine
DX: D64.9 Anemia, unspecified (principal); E83.52 Hypercalcemia
CPT/HCPCS: 36415; 81599; 82232; 82330; 82784; 83521

== ENCOUNTER 2022-10-03 13:59 | Outpatient (CLI) | payer MEDICARE, OTHER ==
[2022-10-08 16:08] LABS: A/G RATIO 1.1 (0.7-1.7); ALBUMIN 3.5 g/dL (2.9-4.4); ALPHA-1-GLOBULIN 0.3 g/dL (0.0-0.4); ALPHA-2-GLOBULIN 0.9 g/dL (0.4-1.0); BETA GLOBULIN 1.1 g/dL (0.7-1.3); GAMMA GLOBULIN 0.9 g/dL (0.4-1.8); GLOBULIN, TOTAL 3.1 g/dL (2.2-3.9); PROTEIN TOTAL 6.6 g/dL (6.0-8.5)
== END 2022-10-03 14:00 | disposition home or self-care (01) ==
LOC: LAB.N 13:59
PROVIDERS: ATTEND Family Medicine
DX: D64.9 Anemia, unspecified (principal); E83.52 Hypercalcemia
CPT/HCPCS: 84155; 84165

== ENCOUNTER 2023-01-24 08:26 | Outpatient (CLI) | payer MEDICARE, OTHER | END 2023-01-24 08:27 | disposition EMS.NT | LOC: EMS 08:26 | DX: S01.01XA Laceration without foreign body of scalp, initial encounter (principal); W18.39XA Other fall on same level, initial encounter; Y93.89 Activity, other specified; Y92.009 Unspecified place in unspecified non-institutional (private) residence as the place of occurrence of the external cause ==

== ENCOUNTER 2023-03-14 11:09 | Outpatient (CLI) | payer MEDICARE, OTHER ==
[2023-03-14 17:46] LABS: BASOPHILS # (AUTO) 0.1 10^3/uL (0.0-0.1); BASOPHILS % (AUTO) 0.8 %; EOSINOPHILS # (AUTO) 0.2 10^3/uL (0.0-0.7); EOSINOPHILS % (AUTO) 2.7 %; HCT - HEMATOCRIT 35.8 % (37.0-47.0); LYMPHOCYTES # (AUTO) 1.3 10^3/uL (1.5-3.5); LYMPHOCYTES % (AUTO) 20.3 %; MEAN CORPUSCULAR HEMOGLOBIN 28.9 pg (27.0-31.0); MEAN CORPUSCULAR HGB CONC 30.7 g/dL (32.0-36.0); MEAN PLATELET VOLUME 10.1 fL (7.9-10.8); MONOCYTES # (AUTO) 0.6 10^3/uL (0.0-1.0); MONOCYTES % (AUTO) 10.1 %; NEUTROPHILS # (AUTO) 4.2 10^3/uL (1.5-6.6); NEUTROPHILS % (AUTO) 65.9 %; PLT - PLATELET COUNT 260 10^3/uL (130-450); RED BLOOD COUNT 3.81 10^6/uL (4.20-5.40); RED CELL DISTRIBUTION WIDTH 14.8 % (12.0-15.0); WHITE BLOOD COUNT 6.3 x10^3/uL (4.8-10.8)
[2023-03-14 18:01] LABS: ALBUMIN 4.2 g/dL (3.2-5.5); ALBUMIN/GLOBULIN RATIO 1.4 (1.0-2.2); ALKALINE PHOSPHATASE 102 IU/L (42-121); ALT ALANINE AMINOTRANSFERASE 6 IU/L (10-60); AST ASPARTATE AMINOTRANSFERASE 15 IU/L (10-42); BILIRUBIN,TOTAL 0.3 mg/dL (0.2-1.0); BUN - BLOOD UREA NITROGEN 30 mg/dL (6-20); CALCIUM 10.6 mg/dL (8.5-10.3); CARBON DIOXIDE - CO2 28 mmol/L (21-32); CHLORIDE 106 mmol/L (101-111); CHOL/HDL RATIO 2.4 (<4.4); CHOLESTEROL 217 mg/dL; CREATININE 0.8 mg/dL (0.6-1.3); GFR - MDRD 69 (>89); GLUCOSE 101 mg/dL (74-104); HDL CHOLESTEROL 90 mg/dL; LDL CHOLESTEROL,CALCULATED 117 mg/dL; LDL/HDL RATIO 1.3 (<4.4); POTASSIUM 4.5 mmol/L (3.5-4.5); SODIUM 140 mmol/L (135-145); TOTAL PROTEIN 7.2 g/dL (6.4-8.9); TRIGLYCERIDES 52 mg/dL (48-352); VLDL CHOLESTEROL 10 mg/dL
[2023-03-14 18:19] LABS: FERRITIN 7.6 ng/mL (11.0-306.8)
== END 2023-03-14 11:10 | disposition home or self-care (01) ==
LOC: LAB.N 11:09
PROVIDERS: ATTEND Physician Assistant Medical
DX: E78.5 Hyperlipidemia, unspecified (principal); D64.9 Anemia, unspecified
CPT/HCPCS: 36415; 80053; 80061; 82607; 82728; 83721; 85025

== ENCOUNTER 2023-03-24 21:06 | Outpatient (CLI) | payer MEDICARE, OTHER | END 2023-03-24 21:07 | disposition EMS.NT | LOC: EMS 21:06 | DX: Z03.89 Encounter for observation for other suspected diseases and conditions ruled out (principal) ==

== ENCOUNTER 2023-04-09 14:07 | Outpatient (CLI) | payer MEDICARE, OTHER | END 2023-04-09 14:08 | disposition EMS.NT | LOC: EMS 14:07 | DX: S09.90XA Unspecified injury of head, initial encounter (principal); W01.0XXA Fall on same level from slipping, tripping and stumbling without subsequent striking against object, initial encounter; Y92.019 Unspecified place in single-family (private) house as the place of occurrence of the external cause ==

== ENCOUNTER 2023-04-14 08:00 | Outpatient (CLI) | payer MEDICARE, OTHER ==
[2023-04-15 18:14] LABS: FECAL OCCULT BLOOD (FIT) NEGATIVE (NEGATIVE)
== END 2023-04-14 23:59 | disposition home or self-care (01) ==
LOC: LAB.R 08:00
PROVIDERS: ATTEND Physician Assistant Medical
DX: D64.9 Anemia, unspecified (principal)
CPT/HCPCS: 82274

== ENCOUNTER 2023-04-15 14:27 | Outpatient (CLI) | payer MEDICARE, OTHER ==
--- NOTE | 2023-04-17 16:07 | Mammography Report ---
BILATERAL DIGITAL SCREENING MAMMOGRAM: 04/15/2023 CLINICAL: Routine screening. Comparison is made to exams dated: 10/23/2021 mammogram, 07/04/2020 mammogram, 06/12/2019 mammogram, mammogram, and 10/12/2016 mammogram - [facility]. There are scattered areas of fibroglandular density in both breasts (category b / 25%-50% glandular t issue). There are biopsy clips in the left breast. No significant masses, calcifications, or other findings are seen in either breast. There has been no significant interval change. IMPRESSION: NEGATIVE There is no mammographic evidence of malignancy. A 1 year screening mammogram is recommended. Based on the Tyrer Cuzick model (a risk assessment model) the patients lifetime risk is 0.9% and her 10 year risk is 0.0%. According to the ACR, ACS, and NCCN guidelines, an annual breast MRI exam madeleine g with mammogram is recommended if the patients lifetime risk is 20% or greater. This exam was interpreted at Station ID: [id number]. NOTE: For mammograms, a report in lay terms will be sent to the patient. Approximately 15% of breast malignancies will not be visualized mammographically. In the management of a palpable breast mass, a negative mammogram must not discourage biopsy of a clinically suspicious lesion. Electronically Signed By: Jaquan villalobos/jesus:04/16/2023 16:17:38 letter sent: No_Letter ACR BI-RADS Category 1: Negative 3341F PARENCHYMAL PATTERN: (A) - The breast(s) demonstrate(s) scattered fibroglandular densities. BI-RADS CATEGORY: (1) - 1 Mammogram [id number] 1 year screening LATERALITY: (B)
== END 2023-04-15 14:28 | disposition home or self-care (01) ==
LOC: DI.N 14:27
DX: Z12.31 Encounter for screening mammogram for malignant neoplasm of breast (principal); R92.323 Mammographic fibroglandular density, bilateral breasts

== ENCOUNTER 2023-07-09 14:32 | Outpatient (CLI) | payer MEDICARE, OTHER ==
[2023-07-09 17:31] LABS: BASOPHILS % (AUTO) 0.6 %; EOSINOPHILS # (AUTO) 0.2 10^3/uL (0.0-0.7); EOSINOPHILS % (AUTO) 3.7 %; HCT - HEMATOCRIT 33.4 % (37.0-47.0); HGB - HEMOGLOBIN 10.1 g/dL (12.0-16.0); LYMPHOCYTES # (AUTO) 1.6 10^3/uL (1.5-3.5); LYMPHOCYTES % (AUTO) 24.5 %; MEAN CORPUSCULAR HEMOGLOBIN 26.9 pg (27.0-31.0); MEAN CORPUSCULAR HGB CONC 30.2 g/dL (32.0-36.0); MEAN CORPUSCULAR VOLUME 89.1 fL (81.0-99.0); MEAN PLATELET VOLUME 9.9 fL (7.9-10.8); MONOCYTES # (AUTO) 0.5 10^3/uL (0.0-1.0); NEUTROPHILS # (AUTO) 4.1 10^3/uL (1.5-6.6); PLT - PLATELET COUNT 282 10^3/uL (130-450); RED BLOOD COUNT 3.75 10^6/uL (4.20-5.40); RED CELL DISTRIBUTION WIDTH 15.9 % (12.0-15.0); WHITE BLOOD COUNT 6.5 x10^3/uL (4.8-10.8)
[2023-07-09 17:46] LABS: ALBUMIN/GLOBULIN RATIO 1.3 (1.0-2.2); BILIRUBIN,TOTAL 0.2 mg/dL (0.2-1.0); CALCIUM 10.4 mg/dL (8.5-10.3); CREATININE 0.8 mg/dL (0.6-1.3); POTASSIUM 4.6 mmol/L (3.5-4.5); TOTAL PROTEIN 7.1 g/dL (6.4-8.9)
[2023-07-09 18:09] LABS: FERRITIN 6.3 ng/mL (11.0-306.8)
== END 2023-07-09 14:33 | disposition home or self-care (01) ==
LOC: LAB.N 14:32
PROVIDERS: ATTEND Physician Assistant Medical
DX: E83.52 Hypercalcemia (principal); D64.9 Anemia, unspecified
CPT/HCPCS: 36415; 80053; 82728; 85025

== ENCOUNTER 2023-09-26 14:02 | Outpatient (CLI) | payer MEDICARE, OTHER ==
[2023-09-26 17:41] LABS: BASOPHILS # (AUTO) 0.1 10^3/uL (0.0-0.1); BASOPHILS % (AUTO) 0.9 %; EOSINOPHILS # (AUTO) 0.3 10^3/uL (0.0-0.7); EOSINOPHILS % (AUTO) 3.8 %; HCT - HEMATOCRIT 36.6 % (37.0-47.0); HGB - HEMOGLOBIN 11.2 g/dL (12.0-16.0); LYMPHOCYTES # (AUTO) 1.6 10^3/uL (1.5-3.5); LYMPHOCYTES % (AUTO) 25.1 %; MEAN CORPUSCULAR HEMOGLOBIN 28.6 pg (27.0-31.0); MEAN CORPUSCULAR HGB CONC 30.6 g/dL (32.0-36.0); MEAN CORPUSCULAR VOLUME 93.6 fL (81.0-99.0); MEAN PLATELET VOLUME 10.3 fL (7.9-10.8); MONOCYTES # (AUTO) 0.6 10^3/uL (0.0-1.0); MONOCYTES % (AUTO) 8.7 %; NEUTROPHILS % (AUTO) 61.3 %; PLT - PLATELET COUNT 237 10^3/uL (130-450); RED BLOOD COUNT 3.91 10^6/uL (4.20-5.40); RED CELL DISTRIBUTION WIDTH 18.2 % (12.0-15.0); WHITE BLOOD COUNT 6.5 x10^3/uL (4.8-10.8)
[2023-09-26 17:59] LABS: % IRON SATURATION 43 % (20-50); IRON 146 ug/dL (50-212); TOTAL IRON BINDING CAPACITY 342 ug/dL (250-450); TRANSFERRIN 244 mg/dL (203-362)
[2023-09-26 18:37] LABS: FERRITIN 21.3 ng/mL (11.0-306.8)
== END 2023-09-26 14:03 | disposition home or self-care (01) ==
LOC: LAB.N 14:02
PROVIDERS: ATTEND Physician Assistant Medical
DX: D64.9 Anemia, unspecified (principal)
CPT/HCPCS: 36415; 82607; 82728; 82746; 83540; 84466; 85025

== ENCOUNTER 2024-01-08 12:55 | Outpatient (CLI) | payer MEDICARE, OTHER ==
[2024-01-08 17:41] LABS: BASOPHILS # (AUTO) 0.1 10^3/uL (0.0-0.1); EOSINOPHILS # (AUTO) 0.2 10^3/uL (0.0-0.7); EOSINOPHILS % (AUTO) 3.6 %; HCT - HEMATOCRIT 36.1 % (37.0-47.0); HGB - HEMOGLOBIN 11.1 g/dL (12.0-16.0); LYMPHOCYTES # (AUTO) 1.3 10^3/uL (1.5-3.5); LYMPHOCYTES % (AUTO) 22.2 %; MEAN CORPUSCULAR HEMOGLOBIN 30.3 pg (27.0-31.0); MEAN CORPUSCULAR HGB CONC 30.7 g/dL (32.0-36.0); MEAN CORPUSCULAR VOLUME 98.6 fL (81.0-99.0); MEAN PLATELET VOLUME 9.9 fL (7.9-10.8); MONOCYTES # (AUTO) 0.5 10^3/uL (0.0-1.0); MONOCYTES % (AUTO) 8.9 %; NEUTROPHILS # (AUTO) 3.9 10^3/uL (1.5-6.6); NEUTROPHILS % (AUTO) 64.1 %; PLT - PLATELET COUNT 293 10^3/uL (130-450); RED BLOOD COUNT 3.66 10^6/uL (4.20-5.40); RED CELL DISTRIBUTION WIDTH 14.1 % (12.0-15.0)
== END 2024-01-08 12:56 | disposition home or self-care (01) ==
LOC: LAB.N 12:55
PROVIDERS: ATTEND Physician Assistant Medical
DX: D64.9 Anemia, unspecified (principal)
CPT/HCPCS: 36415; 82728; 85025